=== PATIENT | male | born 1955 | race Caucasian/White ===

== ENCOUNTER → 2017-04-22 | Outpatient (CLI) | payer OTHER ==
[2017-04-22 08:51] LABS: Basophils # (A) 0.1 k/uL (0-0.2); Basophils % (A) 1 %; CH 31.1; CHCM 33.7; Eosinophils # (A) 0.2 k/uL (0-0.7); Eosinophils % (A) 4 %; HCT 47.8 % (39.0-53.0); HDW 2.51; HGB 15.7 gm/dL (13.0-17.5); Luc # (Auto) 0.22; Luc % (Auto) 4; Lymphocytes # (A) 1.8 k/uL (1.0-4.8); Lymphocytes % (A) 34 %; MCH 30.4 pg (25.0-35.0); MCHC 32.7 g/dL (31.0-37.0); MCV 92.8 fL (80.0-100.0); Mean Platelet Volume 6.5; Monocytes # (A) 0.4 k/uL (0-1.0); Monocytes % (A) 7 %; Neutrophils # (A) 2.7 k/uL (1.3-7.7); Neutrophils % (A) 50 %; RBC 5.16 m/uL (4.30-5.90); RDW 13.6 % (11.5-15.5); WBC 5.4 k/uL (3.8-10.6); WBC (Perox) 5.71
[2017-04-22 11:27] LABS: ALT 43 U/L (21-72); AST 24 U/L (17-59); Alkaline Phosphatase 70 U/L (38-126); Anion Gap 8 mmol/L; Blood Urea Nitrogen 21 mg/dL (9-20); Calcium 9.1 mg/dL (8.4-10.2); Carbon Dioxide 27 mmol/L (22-30); Chloride 108 mmol/L (98-107); Cholesterol 215 mg/dL (<200); Creatine Kinase 211 U/L (55-170); Glucose 89 mg/dL (74-99); HDL Cholesterol 47 mg/dL (40-60); Non-African American GFR(MDRD) >60 (>60 ml/min/1.73 sqM); Potassium 4.7 mmol/L (3.5-5.1); Sodium 143 mmol/L (137-145); Total Bilirubin 0.8 mg/dL (0.2-1.3); Total Protein 6.2 g/dL (6.3-8.2); Triglycerides 90 mg/dL (<150)
[2017-04-22 12:15] LABS: Vitamin B12 329 pg/mL (239-931)
== END | disposition home or self-care (01) ==
LOC: LABWHC1 08:00
PROVIDERS: ATTEND Family Medicine
DX: E78.5 Hyperlipidemia, unspecified (principal); K52.831 Collagenous colitis; G25.81 Restless legs syndrome; N52.9 Male erectile dysfunction, unspecified
CPT/HCPCS: 36415; 80053; 80061; 82550; 82607; 83735; 84403; 84439; 84443; 84550; 85025

== ENCOUNTER → 2019-06-06 | Outpatient (CLI) | payer OTHER ==
--- NOTE | 2019-06-06 18:47 | MR ---
EXAMINATION TYPE: MR knee LT wo con DATE OF EXAM: 06/06/2019 COMPARISON: None HISTORY: Left knee pain TECHNIQUE: Multiplanar, multisequence imaging of the left knee is performed without IV contrast. FINDINGS: MEDIAL MENISCUS: There is linear increased signal in the posterior horn of the medial meniscus which extends to the articular surface and extending into the root compatible with tear. The meniscus poste rior horn is attenuated extending into the body. LATERAL MENISCUS: Linear increased signal within the posterior horn of the lateral meniscus extends t o the articular surface consistent with tear. CRUCIATE LIGAMENTS: Posterior cruciate ligament may be somewhat thickened, there is some increased si gnal within the distribution, the fibers of the anterior cruciate ligament are less well-defined and show associated fluid signal which may be due to myxoid degeneration. No mona tear, there may be int rasubstance partial tear. COLLATERAL LIGAMENTS: The medial collateral ligament and lateral collateral ligament complex are inta ct and unremarkable. EXTENSOR MECHANISM: Visualized quadriceps and patellar tendons are intact. EFFUSION: Suprapatellar joint effusion is present. 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 TRICOMPARTMENT SPACES: Joint space loss is present in the medial and lateral compartment. CARTILAGE: Grade IV chondromalacia present in the medial compartment, there is remodeling of the medi al femoral condyle and lateral femoral condyle, grade 3 to grade IV chondromalacia present in the lat eral compartment BONE MARROW SIGNAL: Abnormal marrow signal present in the intercondylar region of the posterior proxi mal tibia, geode formation present in the proximal tibia, reactive marrow signal change present in th e subchondral medial femoral condyle and there may be an intraosseous ganglion at the origin of the a nterior cruciate ligament OTHER: Subcutaneous edema changes are present. Popliteal vein is not well seen at the level of the p osterior knee joint line. Fluid signal extends peripheral to the inferior margin of Hu's cyst. IMPRESSION: Osteoarthritis. Tears of the posterior horns of the medial and lateral meniscus as described. Poplite al vein not well seen at the level posterior to the knee joint. There is apparent mass effect present posterior to the distal femur possibly contributed by the semimembranosus gastrocnemius cyst. Subcut aneous edema. Fluid in the soft tissues could represent rupture of the Hu cyst.
== END | disposition home or self-care (01) ==
LOC: RADMRIMAIN 17:05
PROVIDERS: ATTEND Family Medicine
DX: M17.12 Unilateral primary osteoarthritis, left knee (principal); S83.282A Other tear of lateral meniscus, current injury, left knee, initial encounter; S83.242A Other tear of medial meniscus, current injury, left knee, initial encounter

== ENCOUNTER 2019-06-17 15:03 | Observation (INO) | payer OTHER ==
[2019-06-17 16:53] LABS: Basophils % (A) 0 %; Eosinophils % (A) 0 %; HCT 44.8 % (39.0-53.0); HGB 14.9 gm/dL (13.0-17.5); Lymphocytes # (A) 1.8 k/uL (1.0-4.8); Lymphocytes % (A) 17 %; MCH 29.9 pg (25.0-35.0); MCHC 33.2 g/dL (31.0-37.0); MCV 90.1 fL (80.0-100.0); Mean Platelet Volume 6.2; Monocytes # (A) 0.6 k/uL (0-1.0); Monocytes % (A) 6 %; Neutrophils # (A) 7.4 k/uL (1.3-7.7); Neutrophils % (A) 74 %; Platelet Count 281 k/uL (150-450); RBC 4.98 m/uL (4.30-5.90); RDW 13.7 % (11.5-15.5); WBC 10.1 k/uL (3.8-10.6)
--- NOTE | 2019-06-17 16:53 | ED ---
General Adult HPI - General Chief complaint: Neuro Symptoms/Deficit Stated complaint: Facial Numbness Time Seen by Provider: 06/17/19 15:47 Source: patient Mode of arrival: ambulatory Limitations: no limitations - History of Present Illness Initial comments: 63 yoM presenting with right-sided facial droop that began . 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 He was placed on valacyclovir and prednisone. Since then he's been having worsening symptoms that lead to difficulty swallowing. He states he attempted to contact Dr. Davey's office prior to arrival to the ED but was unab le to get in. He denies any headaches or other focal weaknesses. Denies history of stroke. - Related Data Home Medications Medication Instructions Recorded Confirmed Gabapentin [Neurontin] 600 mg PO HS 06/17/19 06/17/19 Mesalamine [Lialda] 1.2 gm PO DAILY 06/17/19 06/17/19 Pravastatin Sodium [Pravachol] 40 mg PO DAILY 06/17/19 06/17/19 predniSONE See Taper PO DAILY 06/17/19 06/17/19 rOPINIRole HCL 1 mg PO BID@1700,2100 06/17/19 06/17/19 valACYclovir HCL [Valtrex] 1,000 mg PO Q12HR 06/17/19 06/17/19 Allergies Allergy/AdvReac Type Severity Reaction Status Date / Time No Known Allergies Allergy Verified 06/17/19 17:00 Review of Systems ROS Statement: Those systems with pertinent positive or pertinent negative responses have been documented in the HPI. Review of Systems Constitutional: Denies fever, chills Eyes: Denies change in vision, Denies pain Ears, nose, mouth, throat: Denies headaches, Denies sore throat Cardiovascular: Denies chest pain. Denies palpitations Respiratory: Denies shortness of breath, Denies cough Gastrointestinal: Denies abdominal pain. Denies nausea, vomiting, diarrhea. Genitourinary: Denies hematuria, Denies infections Musculoskeletal: Denies pain, Denies swelling Integumentary: Denies rash Neurological: Denies headache. Positive right sided facial droop Psychiatric: Denies anxiety, Denies depression Hematologic/Lymphatic: Denies easy bleeding or bruising ROS Other: All systems not noted in ROS Statement are negative. Past Medical History Past Medical History: No Reported History, Hyperlipidemia Additional Past Medical History / Comment(s): colitis History of Any Multi-Drug Resistant Organisms: None Reported Past Surgical History: Orthopedic Surgery Additional Past Surgical History / Comment(s): ARTHROSCOPY KNEE, COLONOSCOPY Past Anesthesia/Blood Transfusion Reactions: No Reported Reaction Past Psychological History: No Psychological Hx Reported Smoking Status: Never smoker Past Alcohol Use History: Occasional Past Drug Use History: None Reported - Past Family History Mother Family Medical History: No Reported History General Exam - General Exam Comments Initial Comments: General: Awake, alert, No acute Distress HENT: Normocephalic. Atraumatic Eyes: PERRL. EOMI. No scleral icterus. No injected conjunctiva Neck: Full ROM Chest/Lungs: Clear to auscultation bilaterally. No wheezing, rhonchi, or rales Cardiac: Regular rate, rhythm. No murmurs or rubs Abdomen/GI: Soft, nontender, nondistended. No rebound, guarding, or rigidity. Musculoskeletal: Full ROM Skin: Warm, dry, intact Neurologic: A/Ox3. Right sided facial droop involving forehead. Sensation intact. No pronator drift bilaterally. No extremity weakness. Finger to nose intact bilaterally. Limitations: no limitations Course Vital Signs 06/17/19 06/17/19 06/17/19 15:13 16:45 17:30 Temperature 98.1 F Pulse Rate 73 56 L 55 L Respiratory 18 18 18 Rate Blood Pressure 141/87 141/90 146/90 O2 Sat by Pulse 95 94 L 95 Oximetry Medical Decision Making - Medical Decision Making 63-year-old male presenting with right-sided facial droop. Initial exam the patient is awake, alert, no acute distress. VSS. NIHSS 3 for facial droop. I spoke with Dr. Davey, who was concerned that this could be a stroke secondary to his difficulty swallowing. Patient CT head was negative for acute process. He'll be admitted and evaluated by neurology, as well as have an MRI in the morning. Speech therapy also consulted. Patient is stable for transfer to the floor. - Lab Data Result diagrams: 06/17/19 16:42 06/17/19 16:42 Lab Results 06/17/19 06/17/19 Range/Units 16:42 16:42 WBC 10.1 (3.8-10.6) k/uL RBC 4.98 (4.30-5.90) m/uL Hgb 14.9 (13.0-17.5) gm/dL Hct 44.8 (39.0-53.0) % MCV 90.1 (80.0-100.0) fL MCH 29.9 (25.0-35.0) pg MCHC 33.2 (31.0-37.0) g/dL RDW 13.7 (11.5-15.5) % Plt Count 281 (150-450) k/uL Neutrophils % 74 % Lymphocytes % 17 % Monocytes % 6 % Eosinophils % 0 % Basophils % 0 % Neutrophils # 7.4 (1.3-7.7) k/uL Lymphocytes # 1.8 (1.0-4.8) k/uL Monocytes # 0.6 (0-1.0) k/uL Eosinophils # 0.0 (0-0.7) k/uL Basophils # 0.0 (0-0.2) k/uL Sodium 142 (137-145) mmol/L Potassium 4.3 (3.5-5.1) mmol/L Chloride 109 H (98-107) mmol/L Carbon Dioxide 24 (22-30) mmol/L Anion Gap 9 mmol/L BUN 24 H (9-20) mg/dL Creatinine 0.81 (0.66-1.25) mg/dL Est GFR (CKD-EPI)AfAm >90 (>60 ml/min/1.73 sqM) Est GFR (CKD-EPI)NonAf >90 (>60 ml/min/1.73 sqM) Glucose 110 H (74-99) mg/dL Calcium 9.4 (8.4-10.2) mg/dL Disposition Clinical Impression: Sher's palsy Disposition: ADMITTED IP TO THIS [facility] Is patient prescribed a controlled substance at d/c from ED?: No Decision to Admit Reason: Admit from EC Decision Date: 06/17/19 Decision Time: 17:35
[2019-06-17 17:01] LABS: African American GFR (CKD) >90 (>60 ml/min/1.73 sqM); Anion Gap 9 mmol/L; Blood Urea Nitrogen 24 mg/dL (9-20); Calcium 9.4 mg/dL (8.4-10.2); Carbon Dioxide 24 mmol/L (22-30); Chloride 109 mmol/L (98-107); Glucose 110 mg/dL (74-99); Non-African American GFR(CKD) >90 (>60 ml/min/1.73 sqM); Potassium 4.3 mmol/L (3.5-5.1); Sodium 142 mmol/L (137-145)
--- NOTE | 2019-06-17 17:04 | CT ---
EXAMINATION TYPE: CT brain wo con DATE OF EXAM: 06/17/2019 COMPARISON: None HISTORY: Right sided facial numbness. CT DLP: 1102.4 mGycm Automated exposure control for dose reduction was used. FINDINGS: There is mild cerebral cortical atrophy. There is no mass effect nor midline shift. There is no sign of intracranial hemorrhage. The calvarium is intact. Skull base is intact. IMPRESSION: ATROPHY APPROPRIATE FOR AGE. OTHERWISE NEGATIVE EXAM.
[2019-06-17] MEDS ORDERED: IBUPROFEN 400 MG TAB PO PRN (17:35)
[2019-06-17] MEDS ORDERED: ACETAMINOPHEN TAB 325 MG TAB PO PRN (17:35)
[2019-06-17] MEDS ORDERED: NALOXONE 0.4 MG/ML 1 ML VIAL IV PRN (17:35)
--- NOTE | 2019-06-17 20:19 | P.CNNES ---
History of Present Illness Consult date: 06/17/19 Requesting physician: Michelle Ramirez Reason for Consult: Right facial droop Chief complaint: Right face drooping since last History of Present Illness: This is a 63 RH male who was brushing his teeth on the evening of 06/13/19 when he suddenly noticed water was drooling out of the right corner of his mouth. He looked at himself in the mirror and saw that the right side of his face was drooping. Along with the facial droop, he also notices numbness and tingling on the ipsilateral face, a change taste, trouble with mastication and swallowing, difficulty closing his right eye and dry eye OD. He has been using Visine. He denies sensitivity to sound (though he wears hearing aids AU) or periauricular pain. He did present to UC and was started on prednisone and valacylovir within 24 hours of onset of symptoms. He denies any head/neck trauma, URI sx or vaccine. Denies h/o HTN or DM. Does state a statin for HL. Otherwise, pretty physically healthy. No sick contacts or exposure to toxins or industrial agents. His symptoms did not improve significantly since started the 2 meds. He called his PCP who advised him to come to the hospital to get admitted for MRI Brain to r/o CVA. Review of Systems 14-point ROS performed and as per HPI. Neurologically, patient denies decreased level or loss of consciousness, headache, seizure, diplopia, amaurosis, changes in hearing, vertigo, hearing changes, tinnitus, aphasia, other focal numbness/weakness not mentioned above, tremors, bowel/bladder incontinence or ataxia. Past Medical History Past Medical History: No Reported History, Hyperlipidemia Additional Past Medical History / Comment(s): colitis History of Any Multi-Drug Resistant Organisms: None Reported Past Surgical History: Orthopedic Surgery Additional Past Surgical History / Comment(s): ARTHROSCOPY KNEE, COLONOSCOPY Past Anesthesia/Blood Transfusion Reactions: No Reported Reaction Past Psychological History: No Psychological Hx Reported Smoking Status: Never smoker Past Alcohol Use History: Occasional Past Drug Use History: None Reported - Past Family History Mother Family Medical History: No Reported History Medications and Allergies Home Medications Medication Instructions Recorded Confirmed Type Gabapentin [Neurontin] 600 mg PO HS 06/17/19 06/17/19 History Mesalamine [Lialda] 1.2 gm PO DAILY 06/17/19 06/17/19 History Pravastatin Sodium [Pravachol] 40 mg PO DAILY 06/17/19 06/17/19 History predniSONE See Taper PO DAILY 06/17/19 06/17/19 History rOPINIRole HCL 1 mg PO BID@1700,2100 06/17/19 06/17/19 History valACYclovir HCL [Valtrex] 1,000 mg PO Q12HR 06/17/19 06/17/19 History Allergies Allergy/AdvReac Type Severity Reaction Status Date / Time No Known Allergies Allergy Verified 06/17/19 17:00 Physical Examination - Vital Signs Vital Signs: Vital Signs Temp Pulse Resp BP Pulse Ox 06/17/19 19:00 53 L 18 138/96 93 L 06/17/19 17:30 55 L 18 146/90 95 06/17/19 16:45 56 L 18 141/90 94 L 06/17/19 15:13 98.1 F 73 18 141/87 95 Intake and Output 06/17/19 06/17/19 06/17/19 06:59 14:59 22:59 Other: Weight 102.058 kg Gen NAD Pleasant and cooperative HEENT NCAT Sclera without icterus O/P clear Neck Supple No carotid bruit Cor RRR no m/r/g Lungs CTAB Abd Soft NTND +BS Ext Warm to touch No edema Neuro MS A+Ox4 Normal fluency Able to follow all commands CN PERRL VFF no APD EOMI no nystagmus or ROSALIA Right LMN FD with decreased eyebrow raise on the right, weakness in the right orbicularis oculi and decreased contraction of the right platysma Masseter's symmetric Hearing intact to bilateral finger rubbing with hearing aids on AU Speech mildly dysarthric but easily understandable Equal elevation of palate Tongue midline with symmetric strength Sym shrug and SCM bilaterally Motor Normal bulk/tone No pronator or tremors Strength 5/5 sym throughout Sens Intact to LT x4 No neglect or extinction Coord No dysmetria on FTN bilaterally DTRs 2+/4 sym throughout Toes downgoing bilaterally No clonus at achilles Gait Deferred NIHSS 4.210.1=3 Results - Laboratory Findings CBC and BMP: 06/17/19 16:42 06/17/19 16:42 Abnormal Lab Findings: Abnormal Labs 06/17/19 16:42 Chloride 109 H BUN 24 H Glucose 110 H - Diagnostic Findings Additional findings: CT Head wo cont 06/17/19. Mild cerebral atrophy. No ICH. Nil acute. I have reviewed all neuroimages myself. Assessment and Plan Assessment: Right lower motor neuron facial droop. Clinical presentation consistent with Sher's palsy. Rare SLASHER SAWYER exception would be small lacunar pontine ischemic infarct impacting the CNVII after it's exited the facial nucleus. But, his constellation of symptoms all point towards Sher's palsy, etiology unclear. Plan: -MRI Brain already ordered by ER -Continue prednisone and valacyclovir -Many cases of Sher's palsy are idiopathic. HSV has been implicated. Otherwise, the other most common cause is DM. Will send hga1c, TSH, B12, RPR, NIKO, ESR, CRP, SPEP as part of his PN labs -Most serious complication is corneal abrasion/blindness -Will see if the hospital has eye patches. If not, would tape his eye shut and use eye gel OD to prevent corneal abrasion. Get eye patch until he is able to close his right eye and have normal tear production, though in certain cases synkinesis may occur as a long-term complication -SP for swallowing evaluation -DVT prophylaxis -d/w patient in detail. All questions answered. Thank you for this consultation. Please call with ?. Time with Patient: Greater than 30 (Time spent in direct patient care, greater than 50% of which was spent in [id number] counseling and coordination of care: 70 minutes)
[2019-06-17 20:49] LABS: C Reactive Protein <5.0 mg/L (<10.0)
[2019-06-17] MEDS ORDERED: GABAPENTIN 300 MG CAP PO SCH (21:00)
[2019-06-17] MEDS: valACYclovir HCL 1,000 MG TABLET PO SCH (22:44)
[2019-06-18 01:34] VITALS: RESP 16
[2019-06-18 03:26] LABS: Protein, Total 5.9 g/dL (6.2-8.2)
[2019-06-18] MEDS ORDERED: BALSALAZIDE DISODIUM 750 MG CAPSULE PO SCH (07:30)
[2019-06-18 08:06] LABS: African American GFR (CKD) >90 (>60 ml/min/1.73 sqM); Anion Gap 8 mmol/L; Blood Urea Nitrogen 23 mg/dL (9-20); Carbon Dioxide 27 mmol/L (22-30); Chloride 106 mmol/L (98-107); Glucose 87 mg/dL (74-99); Non-African American GFR(CKD) >90 (>60 ml/min/1.73 sqM); Potassium 4.1 mmol/L (3.5-5.1); Sodium 141 mmol/L (137-145)
[2019-06-18 08:26] LABS: Basophils % (A) 0 %; Eosinophils # (A) 0.1 k/uL (0-0.7); Eosinophils % (A) 1 %; HCT 43.7 % (39.0-53.0); HGB 13.9 gm/dL (13.0-17.5); Lymphocytes # (A) 2.7 k/uL (1.0-4.8); Lymphocytes % (A) 34 %; MCH 28.8 pg (25.0-35.0); MCHC 31.9 g/dL (31.0-37.0); MCV 90.5 fL (80.0-100.0); Mean Platelet Volume 6.4; Monocytes # (A) 0.5 k/uL (0-1.0); Monocytes % (A) 6 %; Neutrophils # (A) 4.5 k/uL (1.3-7.7); Neutrophils % (A) 56 %; Platelet Count 275 k/uL (150-450); RBC 4.83 m/uL (4.30-5.90); RDW 13.5 % (11.5-15.5)
[2019-06-18] MEDS ORDERED: predniSONE 20 MG TAB PO SCH (09:00)
[2019-06-18] MEDS ORDERED: PRAVASTATIN SODIUM 40 MG TAB PO SCH (09:00)
--- NOTE | 2019-06-18 09:55 | MR ---
EXAMINATION TYPE: MR brain wo con DATE OF EXAM: 06/18/2019 COMPARISON: CT brain 06/17/2019 HISTORY: Rule out stroke TECHNIQUE: T1-weighted sagittal, T2, FLAIR, and diffusion axial, and T2 coronal coronal views of the brain are submitted. FINDINGS: There is no evidence of acute ischemia. The ventricles, basal cisterns, and sulci overlying the conv exities are consistent with the patient's age and mild degenerative change. There is no mass effect. Craniocervical junction maintained. Sella turcica has a normal appearance. No cerebellopontine angle mass. Changes of chronic sinusitis are noted and there is a nasal septal de viation. Signal noted in the periventricular white matter is nonspecific but most typical remote micr ovascular ischemia. IMPRESSION: 1. No acute intracranial process. 2. Degenerative and nonspecific white matter changes most typical remote microvascular ischemia.
[2019-06-18] MEDS: valACYclovir HCL 1,000 MG TABLET PO SCH (10:38)
[2019-06-18 10:57] VITALS: TEMP 97.8
--- NOTE | 2019-06-18 11:00 | P.PN ---
Subjective Progress Note Date: 06/18/19 Principal diagnosis: Right LMN FD Face still numb and droopy. Still has difficulty with swallowing. SP evaluating patient. Used gauze to tape right eye shut last noc. Hospital does not have eye gel per patient. No new neuro c/o. Objective - Vital Signs Vital signs: Vital Signs Temp 97.7 F 06/18/19 05:01 Pulse 54 L 06/18/19 05:01 Resp 16 06/18/19 05:01 BP 148/83 06/18/19 05:01 Pulse Ox 94 L 06/18/19 05:01 Intake & Output 06/17/19 06/18/19 06/18/19 18:59 06:59 18:59 Weight 102.058 kg 99.1 kg Other: # Voids 1 - Exam Gen NAD Pleasant and cooperative MS A+Ox4 Normal fluency Able to follow all commands CN PERRL VFF no APD EOMI no nystagmus or ROSALIA Right LMN FD with decreased eyebrow raise on the right, weakness in the right orbicularis oculi and decreased contraction of the right platysma Masseter's symmetric Hearing intact to delvis ateral finger rubbing with hearing aids on AU Speech mildly dysarthric but easily understandable Equal elevation of palate Tongue midline with symmetric strength Sym shrug and SCM bilaterally Motor Normal bulk/tone No pronator or tremors Strength 5/5 sym throughout Sens Intact to LT x4 No neglect or extinction Coord No dysmetria on FTN bilaterally DTRs 2+/4 sym throughout Toes downgoing bilaterally No clonus at achilles Gait Deferred NIHSS 4.210.1=3 - Labs CBC & Chem 7: 06/18/19 07:12 06/18/19 07:12 Labs: Abnormal Lab Results - Last 24 Hours (Table) 06/17/19 06/17/19 06/17/19 Range/Units 16:42 16:42 16:42 Chloride 109 H (98-107) mmol/L BUN 24 H (9-20) mg/dL Glucose 110 H (74-99) mg/dL Total Protein (PEP) 5.9 L (6.2-8.2) g/dL TSH 0.399 L (0.465-4.680) mIU/L 06/18/19 Range/Units 07:12 Chloride (98-107) mmol/L BUN 23 H (9-20) mg/dL Glucose (74-99) mg/dL Total Protein (PEP) (6.2-8.2) g/dL TSH (0.465-4.680) mIU/L - Imaging and Cardiology MRI - head: image reviewed (Negative DWI. Scattered T2/FLAIR signal hyperintensities consistent with chronic small vessel ischemia. No ICH. Nil acute.) Assessment and Plan Assessment: Right lower motor neuron facial droop. Clinical presentation consistent with Sher's palsy. Plan: -MRI Brain reviewed with patient and -Continue prednisone and valacyclovir -Many cases of Sher's palsy are idiopathic. HSV has been implicated. Otherwise, the other most common cause is DM. Will send hga1c, TSH, B12, RPR, NIKO, ESR, CRP, SPEP as part of his PN labs. TSH did come back slightly low. Defer to primary team for any further medical work-up. Can follow up with PCP to go over all lab results. -Most serious complication is corneal abrasion/blindness. Eye patch and gel lubricant to keep eye moist and protected at all times until he can close his right eye naturally -SP eval -DVT prophylaxis -d/w patient/ in detail. All questions answered. -Stable for discharge from acute neuro standpoint. No further inpatient neuro recs at this time. Will revisit prn. Please call with new ?. Thank you again for this consultation. Time with Patient: Less than 30 (Time spent in direct patient care, greater than 50% of which was spent in [id number] counseling and coordination of care: 25 minutes)
[2019-06-18 13:16] LABS: Albumin 3.99 g/dL (3.80-4.90); Gamma Globulin 0.47 g/dL (0.70-1.50)
--- NOTE | 2019-06-18 13:57 | P.HPIM ---
History of Present Illness H&P Date: 06/18/19 Chief Complaint: Difficulty of swallowing right-sided facial droop unable to close right eye This would be both an H&P and discharge summary This 63-year-old pleasant gentleman well known to my practice, has underlying history of borderline diabetes distress. 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 Patient comes in to emergency room secondary to difficulty on swallowinghe cannot propel the food down and was pocketing the food on the right cheek, this happened while the patient was brushing his teeth . 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, denies any foreign body trauma to the right eye and was seen in the ER In the emergency room CAT scan of the brain on shows degenerative nonspecific white matter changes no acute intracranial abnormality, MRI of the brain was requested by neurology at the emergency room, for which was performed today, there is chronic sinusitis changes, remote microvascular ischemia, no evidence of acute ischemia was seen by neurology, and RPR NIKO sed rate CRP SPEP ordered, and was cleared for discharge today, speech has been seen by the patient, for swallow eval and the car recommended the chopped soft diet Review of Systems Constitutional: Reports as per HPI, Denies anorexia, Denies chills, Denies chronic headaches, Denies chronic pain, Denies daytime sleepiness, Denies fatigue, Denies fever, Denies lethargy, Denies malaise, Denies night sweats, Denies poor appetite, Denies sweats, Denies weakness, Denies weight gain, Denies weight loss Ears, nose, mouth and throat: Reports as per HPI Cardiovascular: Reports as per HPI Respiratory: Reports as per HPI Genitourinary: Reports as per HPI, Denies decreased libido, Denies difficulties fathering child, Denies discharge, Denies dysuria, Denies erectile dysfunction, Denies flank pain, Denies genital pain, Denies genital sores, Denies hematuria, Denies impotence, Denies incontinence, Denies kidney stones, Denies nocturia, Denies polyuria, Denies testicular lump, Denies testicular pain, Denies urinary frequency, Denies urinary hesitancy, Denies urinary retention Musculoskeletal: Reports as per HPI, Denies arm numbness/tingling, Denies atrophy, Denies fractures, Denies frequent falls, Denies gait dysfunction, Denies hot joints, Denies leg numbness/tingling, Denies limitation of motion, Denies loss of height, Denies low back pain, Denies morning stiffness, Denies muscle cramps, Denies muscle weakness, Denies myalgias, Denies neck pain, Denies neck stiffness, Denies prior amputations, Denies redness of joints, Denies shooting arm pain, Denies shooting leg pain Integumentary: Reports as per HPI Neurological: Reports as per HPI, Reports numbness (face righy), Reports paresthesias (face right) Psychiatric: Reports as per HPI Endocrine: Reports as per HPI Hematologic/Lymphatic: Reports as per HPI Allergic/Immunologic: Reports as per HPI Past Medical History Past Medical History: No Reported History, Hyperlipidemia Additional Past Medical History / Comment(s): colitis and restless leg syndrome History of Any Multi-Drug Resistant Organisms: None Reported Past Surgical History: Orthopedic Surgery Additional Past Surgical History / Comment(s): ARTHROSCOPY KNEE, COLONOSCOPY Past Anesthesia/Blood Transfusion Reactions: No Reported Reaction Past Psychological History: No Psychological Hx Reported Smoking Status: Never smoker Past Alcohol Use History: Occasional Past Drug Use History: None Reported - Past Family History Mother Family Medical History: Diabetes Mellitus Father Family Medical History: Unable to Obtain Brother(s) Family Medical History: No Reported History Sister(s) Family Medical History: No Reported History Daughter(s) Family Medical History: No Reported History Son(s) Family Medical History: No Reported History Medications and Allergies Home Medications Medication Instructions Recorded Confirmed Type Gabapentin [Neurontin] 600 mg PO HS 06/17/19 06/17/19 History Mesalamine [Lialda] 1.2 gm PO DAILY 06/17/19 06/17/19 History Pravastatin Sodium [Pravachol] 40 mg PO DAILY 06/17/19 06/17/19 History predniSONE See Taper PO DAILY 06/17/19 06/17/19 History rOPINIRole HCL 1 mg PO BID@1700,2100 06/17/19 06/17/19 History valACYclovir HCL [Valtrex] 1,000 mg PO Q12HR 06/17/19 06/17/19 History Allergies Allergy/AdvReac Type Severity Reaction Status Date / Time No Known Allergies Allergy Verified 06/17/19 17:00 Physical Exam Vitals: Vital Signs Temp Pulse Pulse Resp BP BP Pulse Ox 06/18/19 08:00 97.8 F 53 L 133/78 95 06/18/19 05:01 97.7 F 54 L 16 148/83 94 L 06/18/19 00:00 97.7 F 59 L 16 149/86 96 06/17/19 22:00 98.1 F 55 L 16 149/83 95 06/17/19 20:30 97.7 F 58 L 18 103/80 96 06/17/19 19:00 53 L 18 138/96 93 L 06/17/19 17:30 55 L 18 146/90 95 06/17/19 16:45 56 L 18 141/90 94 L 06/17/19 15:13 98.1 F 73 18 141/87 95 Intake and Output 06/17/19 06/18/19 06/18/19 22:59 06:59 14:59 Other: # Voids 1 Weight 102.058 kg 99.1 kg - Constitutional General appearance: cooperative, no acute distress - EENT Right facial droop, with shallow nasolabial crease, unable to close the eyelid right side, lip pursing is abnormal, hip blowing abnormal, tongue is midline Eyes: anicteric sclerae, EOMI, PERRLA, dentition normal, normal appearance ENT: NA/AT, normal oropharynx Results CBC & Chem 7: 06/18/19 07:12 06/18/19 07:12 Labs: Abnormal Lab Results - Last 24 Hours (Table) 06/17/19 06/17/19 06/17/19 Range/Units 16:42 16:42 16:42 Chloride 109 H (98-107) mmol/L BUN 24 H (9-20) mg/dL Glucose 110 H (74-99) mg/dL Total Protein (PEP) 5.9 L (6.2-8.2) g/dL Yuuoz-0-Vkkdjldgy 0.53 L (0.60-1.00) g/dL Gamma Globulins 0.47 L (0.70-1.50) g/dL TSH 0.399 L (0.465-4.680) mIU/L 06/18/19 Range/Units 07:12 Chloride (98-107) mmol/L BUN 23 H (9-20) mg/dL Glucose (74-99) mg/dL Total Protein (PEP) (6.2-8.2) g/dL Amhry-4-Hxazdrskt (0.60-1.00) g/dL Gamma Globulins (0.70-1.50) g/dL TSH (0.465-4.680) mIU/L Laboratory Results WBC 8.0 k/uL (3.8-10.6) 06/18/19 07:12 RBC 4.83 m/uL (4.30-5.90) 06/18/19 07:12 Hgb 13.9 gm/dL (13.0-17.5) 06/18/19 07:12 Hct 43.7 % (39.0-53.0) 06/18/19 07:12 MCV 90.5 fL (80.0-100.0) 06/18/19 07:12 MCH 28.8 pg (25.0-35.0) 06/18/19 07:12 MCHC 31.9 g/dL (31.0-37.0) 06/18/19 07:12 RDW 13.5 % (11.5-15.5) 06/18/19 07:12 Plt Count 275 k/uL (150-450) 06/18/19 07:12 Neutrophils % 56 % 06/18/19 07:12 Lymphocytes % 34 % 06/18/19 07:12 Monocytes % 6 % 06/18/19 07:12 Eosinophils % 1 % 06/18/19 07:12 Basophils % 0 % 06/18/19 07:12 Neutrophils # 4.5 k/uL (1.3-7.7) 06/18/19 07:12 Lymphocytes # 2.7 k/uL (1.0-4.8) 06/18/19 07:12 Monocytes # 0.5 k/uL (0-1.0) 06/18/19 07:12 Eosinophils # 0.1 k/uL (0-0.7) 06/18/19 07:12 Basophils # 0.0 k/uL (0-0.2) 06/18/19 07:12 ESR 2 mm/hr (0-15) 06/17/19 16:42 Sodium 141 mmol/L (137-145) 06/18/19 07:12 Potassium 4.1 mmol/L (3.5-5.1) 06/18/19 07:12 Chloride 106 mmol/L (98-107) 06/18/19 07:12 Carbon Dioxide 27 mmol/L (22-30) 06/18/19 07:12 Anion Gap 8 mmol/L 06/18/19 07:12 BUN 23 mg/dL (9-20) H 06/18/19 07:12 Creatinine 0.81 mg/dL (0.66-1.25) 06/18/19 07:12 Est GFR (CKD-EPI)AfAm >90 (>60 ml/min/1.73 sqM) 06/18/19 07:12 Est GFR (CKD-EPI)NonAf >90 (>60 ml/min/1.73 sqM) 06/18/19 07:12 Glucose 87 mg/dL (74-99) 06/18/19 07:12 Calcium 9.0 mg/dL (8.4-10.2) 06/18/19 07:12 C-Reactive Protein <5.0 mg/L (<10.0) 06/17/19 16:42 Total Protein (PEP) 5.9 g/dL (6.2-8.2) L 06/17/19 16:42 Albumin (PEP) 3.99 g/dL (3.80-4.90) 06/17/19 16:42 Twisd-7-Hcgexyvxw 0.30 g/dL (0.10-0.40) 06/17/19 16:42 Nthhj-0-Shfzrvahb 0.53 g/dL (0.60-1.00) L 06/17/19 16:42 Beta Globulins 0.60 g/dL (0.60-1.30) 06/17/19 16:42 Gamma Globulins 0.47 g/dL (0.70-1.50) L 06/17/19 16:42 PEP Interpretation SEE NOTE 06/17/19 16:42 Vitamin B12 409.0 pg/mL (200.0-944.0) 06/17/19 16:42 TSH 0.399 mIU/L (0.465-4.680) L 06/17/19 16:42 NIKO Screen NEGATIVE (NEGATIVE) 06/17/19 16:42 Thrombosis Risk Factor Assmnt - Choose All That Apply Each Factor Represents 1 point: Obesity (BMI >25) Each Risk Factor Represents 2 Points: Age 61-74 years Thrombosis Risk Factor Assessment Total Risk Factor Score: 3 Thrombosis Risk Factor Assessment Level: Moderate Risk Assessment and Plan Plan: 1. Sher's palsy right side, with difficulty of eating related to 7th cranial nerve abnormality,, patient just finished a tapering prednisone dose, and oral valacyclovir, which raises the sometimes is implicated for onset of Sher's pal sy, patient was cleared by neurology Dr. Israel with an MRI of the brain, serum protein electrophoresis, RPR is currently pending, fasting sugars are 87, patient is to be seen by speech therapy and was cleared by speech with a chopped diet, and a home TENS unit outpatient follow-up with speech, at 2-3 times per week, dedicated treatments for 7 cranial nerve pulses, we would allow the patient to have shortened work schedule to allow for physical therapy program. Patient's required compliance eye gel 2. Prediabetes, with recent A1c that is slightly above normal, performed as an outpatient, on low-carb diet, 3 Restless leg syndrome on maintenance of ropinirole 1 mg twice a day no changes 4 colitis, not Crohn's suspected collagenous on the lialda no changes made 5. Hyperlipidemia, on pravastatin 6. Vitamin B12 deficiency, maintenance vitamin B12 500 g daily Discharge planning, stable for discharge today with outpatient physical therapy, TENS unit to the right face, for Sher's palsy, safety glasses for work, and eye patch. Reduced work schedule to allow for physical therapy. Follow-up with myself in 1 week. Time Discharge Medication List Gabapentin [Neurontin] 600 mg PO HS 06/17/19 [History] Mesalamine [Lialda] 1.2 gm PO DAILY 06/17/19 [History] Pravastatin Sodium [Pravachol] 40 mg PO DAILY 06/17/19 [History] predniSONE See Taper PO DAILY 06/17/19 [History] rOPINIRole HCL 1 mg PO BID@1700,2100 06/17/19 [History] valACYclovir HCL [Valtrex] 1,000 mg PO Q12HR 06/17/19 [History]
[2019-06-18 14:31] VITALS: BP 138/84; PULSE 60
== END 2019-06-18 14:24 | disposition home or self-care (01) ==
LOC: EC 15:03 → 3SCARD 18:22
PROVIDERS: ADMIT Family Medicine; ATTEND Family Medicine
DX: G51.0 Bell's palsy (principal); R13.10 Dysphagia, unspecified; E78.5 Hyperlipidemia, unspecified; R73.03 Prediabetes; J32.9 Chronic sinusitis, unspecified; G25.81 Restless legs syndrome; E66.9 Obesity, unspecified; Z68.29 Body mass index [BMI] 29.0-29.9, adult; E53.8 Deficiency of other specified B group vitamins; Z79.899 Other long term (current) drug therapy; Z87.19 Personal history of other diseases of the digestive system; Z83.3 Family history of diabetes mellitus
CPT/HCPCS: 99285; 36415; 92610; 80048 ×2; 85652; 82607; 84443; 85025 ×2; 86140; 84165; 86038; 83036; 70450; 70551; G0378 ×2; J7512

== ENCOUNTER → 2019-11-29 | Outpatient (CLI) | payer OTHER, MEDICARE ==
--- NOTE | 2019-11-29 13:31 | XR ---
EXAMINATION TYPE: XR chest 2V DATE OF EXAM: 11/29/2019 COMPARISON: Chest x-ray January 16, 2010 HISTORY: Presurgical study. TECHNIQUE: Frontal and lateral views of the chest are obtained. FINDINGS: Eventration of both hemidiaphragms redemonstrated. There is chronic parenchymal change with out suspicious focal air space opacity, pleural effusion, or pneumothorax seen. The cardiac silhouet te size is mildly enlarged. Multilevel spurring in the thoracic spine. IMPRESSION: Chronic changes and mild cardiomegaly without acute pulmonary process.
[2019-11-29 19:06] LABS: % Iron Saturation 15.7 (15.00-50.00); Magnesium 2.1 mg/dL (1.5-2.4)
[2019-11-29 23:13] LABS: Hemoglobin A1C 5.6 % (4.0-6.0)
== END | disposition home or self-care (01) ==
LOC: LABWHC1 12:51
PROVIDERS: ATTEND Family Medicine
DX: Z01.818 Encounter for other preprocedural examination (principal); Z01.812 Encounter for preprocedural laboratory examination; I51.7 Cardiomegaly; G25.81 Restless legs syndrome; M23.92 Unspecified internal derangement of left knee; N40.0 Benign prostatic hyperplasia without lower urinary tract symptoms; R73.03 Prediabetes
CPT/HCPCS: 36415; 71046; 82607; 83036; 83540; 83550; 83735

== ENCOUNTER → 2019-11-29 | Outpatient (CLI) | payer OTHER, MEDICARE ==
[2019-11-29 13:15] LABS: Basophils # (A) 0.1 k/uL (0-0.2); Basophils % (A) 1 %; Eosinophils # (A) 0.2 k/uL (0-0.7); Eosinophils % (A) 2 %; HCT 45.5 % (39.0-53.0); HGB 15.2 gm/dL (13.0-17.5); Lymphocytes # (A) 1.9 k/uL (1.0-4.8); Lymphocytes % (A) 19 %; MCH 30.6 pg (25.0-35.0); MCHC 33.3 g/dL (31.0-37.0); MCV 91.8 fL (80.0-100.0); Mean Platelet Volume 6.8; Monocytes # (A) 0.5 k/uL (0-1.0); Monocytes % (A) 5 %; Neutrophils # (A) 7.2 k/uL (1.3-7.7); Neutrophils % (A) 71 %; Platelet Count 258 k/uL (150-450); RBC 4.96 m/uL (4.30-5.90); RDW 13.1 % (11.5-15.5); WBC 10.2 k/uL (3.8-10.6)
[2019-11-29 13:17] LABS: Appearance,Urine Clear (Clear); Bilirubin,Urine Negative (Negative); Blood,Urine Negative (Negative); Color,Urine Yellow; Glucose,Urine (UA) Negative (Negative); Ketones,Urine Negative (Negative); Leukocyte Esterase,Urine Negative (Negative); Nitrite,Urine Negative (Negative); Protein,Urine Trace (Negative); Specific Gravity,Urine 1.023 (1.001-1.035); Urobilinogen,Urine <2.0 mg/dL (<2.0)
[2019-11-29 13:28] LABS: ALT 30 U/L (4-49); AST 28 U/L (17-59); African American GFR (CKD) >90 (>60 ml/min/1.73 sqM); Albumin 4.2 g/dL (3.5-5.0); Alkaline Phosphatase 83 U/L (38-126); Anion Gap 7 mmol/L; Blood Urea Nitrogen 21 mg/dL (9-20); Carbon Dioxide 27 mmol/L (22-30); Chloride 106 mmol/L (98-107); Glucose 92 mg/dL (74-99); Non-African American GFR(CKD) >90 (>60 ml/min/1.73 sqM); Potassium 4.3 mmol/L (3.5-5.1); Sodium 140 mmol/L (137-145); Total Bilirubin 0.7 mg/dL (0.2-1.3); Total Protein 6.6 g/dL (6.3-8.2)
[2019-11-29 13:33] LABS: INR 0.9 (<1.2); Partial Thromboplastin Time 25.3 sec (22.0-30.0); Prothrombin Time 10.1 sec (9.0-12.0)
== END | disposition home or self-care (01) ==
LOC: LABPAT 12:53
PROVIDERS: ATTEND Orthopaedic Surgery
DX: Z01.818 Encounter for other preprocedural examination (principal); M17.12 Unilateral primary osteoarthritis, left knee
CPT/HCPCS: 80053; 81003; 85025; 85610; 85730; 87070

== ENCOUNTER 2019-12-23 13:04 | Day surgery (SDC) | payer MEDICARE, OTHER ==
[2019-12-16 14:09] VITALS: BMI 30.5
[~2019-12-23 13:04] MED LIST: ACETAMINOPHEN TAB 500 MG TAB PO ONE; GABAPENTIN 300 MG CAP PO ONE; MELOXICAM 7.5 MG TAB PO ONE; ROPIVACAINE 246.25 MG, EPINEPHrine 0.5 MG, KETOROLAC 30 MG, cloNIDine HCL/PF 80 MCG, WA... MISCELLANE ONE; TRANEXAMIC ACID 1,000 MG in SODIUM CHLORIDE 0.9% 100 ML IVPB ONE
[2019-12-23] MEDS ORDERED: LACTATED RINGERS 1,000 ML IV ONE (13:55)
[2019-12-23] MEDS ORDERED: ONDANSETRON 4 MG/2 ML VIAL IVP ONE (13:59)
[2019-12-23] MEDS ORDERED: DEXAMETHASONE SOD PHOSPHATE 10 MG/ML 1 ML VIAL IV ONE (13:59)
[2019-12-23] MEDS ORDERED: MIDAZOLAM 2 MG/2 ML VIAL IV ONE (14:05)
[2019-12-23] MEDS ORDERED: MIDAZOLAM 2 MG/2 ML VIAL ONE (15:43)
[2019-12-23] MEDS ORDERED: SODIUM CHLORIDE 0.9% 100 ML BAG ONE (15:43)
[2019-12-23] MEDS ORDERED: fentaNYL (PF) 50 MCG/ML 2 ML AMP ONE (15:43)
[2019-12-23] MEDS ORDERED: PROPOFOL 10 MG/ML 20 ML VIAL IV ONE (15:43)
[2019-12-23] MEDS ORDERED: TRANEXAMIC ACID 1,000 MG/10 ML VIAL ONE (15:43)
[2019-12-23] MEDS ORDERED: ceFAZolin 3,000 MG in SODIUM CHLORIDE 0.9% IRRIGATIO 3,000 ML IRRIGATION ONE (16:16)
[2019-12-23] MEDS ORDERED: ROPIVACAINE 0.2%-NS ON-Q PUMP 1,090 MG, EMPTY PAIN BALL 1 EACH MISCELLANE PRN (16:39)
--- NOTE | 2019-12-23 16:41 | P.ANPRN ---
Procedure Note - Anesthesia - Nerve Block Performed Left Adductor Canal Infusion Time Out Performed: Yes Date of Procedure: 12/23/19 Procedure Start Time: 14:06 Procedure Stop Time: 14:14 Location of Patient: PreOp Indication: Acute Post-Operative Pain, Requested by Surgeon Sedation Type: Sedate with meaningful contact maintained Preparation: Sterile Prep, Sterile Dressing Position: Supine Catheter: Indwelling Needle Types: Pajunk Needle Gauge: 21 Ultrasound used to visualize needle placement: Yes Ultrasound used to observe medication spread: Yes Blood Aspirated: No Pain Paresthesia on Injection Noted: No Resistance on Injection: Normal Image Stored and Saved: Yes Events: Uneventful and Well Tolerated (ropi .5% 20cc plus dexamethasone 4mg)
--- NOTE | 2019-12-23 17:02 | P.OP ---
Date of Procedure: 12/23/19 Preoperative Diagnosis: Severe osteoarthritis left knee Postoperative Diagnosis: Severe osteoarthritis left knee Procedure(s) Performed: Left total knee arthroplasty Implants: Monsalve and Nephew Journey II CR Oxinium cruciate retaining femoral component size 7, left Monsalve [employer] Nephew Journey left nonporous tibial baseplate size 6 Monsalve [employer] Nephew Journey II, XLPE CR articular insert, size 9 mm, Size 5-6 left Monsalve [employer]hew Journey BCS resurfacing oval patellar component, 32 mm All components were cemented using Palacos R bone cement.. The articulation is Oxinium on polyethylene. Anesthesia: spinal Surgeon: Jameson Stevenson Vp Cardiovascular #1: Faustina Joseph Estimated Blood Loss (ml): 50 Pathology: other Condition: stable Disposition: PACU Indications for Procedure: After failure of conservative treatment we discussed the surgical and nonsurgical treatment options at length. Patient wishes to proceed with a total knee arthroplasty. Complications specific to this procedure were discussed at length, including but not limited to infection, bleeding, stiffness, and nerve injury. Patient is aware of all these complications and informed consent was obtained Operative Findings: The operative findings are consistent with severe osteoarthritis of the left knee Description of Procedure: Patient was seen in the preoperative area consent was reviewed and operative site was marked with a skin marker. An adductor canal pain catheter was placed by anesthesia in the preoperative area. Patient was then brought to the operating room and given preoperative antibiotics intravenously. A spinal anesthetic was administered by the anesthesia department. A tourniquet was placed on the upper thigh and the lower extremity was prepped and draped in usual sterile fashion. A gram of transexamic acid was given. A universal timeout was then performed which confirmed the patient's name, surgical site, ALLERGIES, and consent. The lower extremity was then exsanguinated and tourniquet was inflated to 250 mmHg. A standard and anterior midline approach to the knee was performed. The skin and subcutaneous tissue was dissected down to the patellar tendon. A medial parapatellar arthrotomy was then performed. The knee was then extended, the patellar was everted, and the knee was again flexed. Anterior horns of both menisci were excised, and a release was performed to the posterior medial aspect of the knee. On gross visual inspection, there was complete loss of articular cartilage in the medial and patellofemoral joint spaces. There was also significant cartilage damage in the lateral compartment. There were multiple periarticular osteophytes which were then removed with a Ronguer. The femoral canal was then opened with the appropriate drill, and the intramedullary femoral cutting guide was then placed and set for 5 of valgus. The distal femoral cutting block was then pinned in place, and the distal femur was then cut. The cutting block was then removed and the cut was checked for flatness. Next, the sizing guide was then placed and set for 3 external rotation based off of the epicondylar axis and Whitesides line. After the femur was sized, the appropriate 4-in-1 cutting block was then pinned in place. The anterior condyles were cut without notching. The posterior and chamfer cuts were performed while protecting the collateral ligaments. The cutting block was then removed, and the femoral canal was plugged with autologous bone. Attention was then directed to the tibia. The remaining ACL was removed with a Ronguer, and the tibia was then gently subluxed forward with a large bent knee retractor. Any remaining menisci was excised. The posterior lateral corner was cauterized in order to cauterize the lateral geniculate artery. The extra medullary tibial cutting guide was then placed, set for the appropriate rotation, slope, and depth of resection. The proximal tibia cutting guide was then pinned in place. Proximal tibia was then cut and sized. Next trials were then placed with the appropriate-sized insert. The knee was able to fully extend and flex to 130 and was stable throughout all range of motion. The knee was then extended, patella everted. Patella was then measured, and then using an osteotomy guide, the patella was cut at the appropriate level. The patella was then measured and drilled and the patella trial was then placed. The knee was then taken through range of motion with the patella trial and the patella tracked normally. The knee was then extended patella trial was then removed and the patella was everted. Knee was then flexed and lug holes were drilled through the femoral trial and the femoral trial was then removed. The tibial was then exposed, and the tibial broach guide was then pinned in place after it was set for the appropriate rotation to allow for the most coverage without overhang. The tibia was then reamed and broached. The cut surfaces of bone were then irrigated with pulsatile lavage. The posterior structures were injected with the ropivacaine solution. The knee was also irrigated with Irrisept solution. The components were then opened, the cement was mixed, and the components were then cemented in place. The cement was allowed to harden with the knee in full extension. While the cement was hardening, the remaining soft tissues were then injected with a ropivacaine solution, which consisted of 246.25 mg of ropivacaine, 0.5 mg of epinephrine, 30 mg of Toradol, 80 g of clonidine, and 48.45 mL of sterile water, for a total of 100 mL of fluid injected. After the cemented hardened. The tourniquet was released, and hemostasis was obtained. A second gram of transexamic acid was given. The knee was again irrigated. The knee was again taken through range of motion and found to be stable throughout all range of motion of 0-130, and the patella tracked normally. The fascia was then closed with #2 strata fix suture. The subcutaneous tissue was closed with 3-0 Vicryl and 3-0 strata fix. Dermabond glue was used for the skin and placed with the knee in flexion. The patient was placed in a sterile silver dressing. Patient was then transferred to recovery room in stable condition. The medical office receptionist assistant ANGELA De Dios was required due the complexity surgery and the need for a skilled surgical scheduler. She assisted in positioning, draping, retraction, and closure of the wound.
[2019-12-23] MEDS ORDERED: NA PHOS,M-B/NA PHOS,DI-BA 133 ML ENEMA RECTAL PRN (17:34)
[2019-12-23] MEDS ORDERED: HYDROcodone/APAP 5-325MG 1 EACH TAB PO PRN (17:34)
[2019-12-23] MEDS ORDERED: MAGNESIUM HYDROXIDE 2,400 MG/10 ML CUP PO PRN (17:34)
[2019-12-23] MEDS ORDERED: ONDANSETRON 4 MG/2 ML VIAL IVP PRN (17:34)
[2019-12-23] MEDS ORDERED: TEMAZEPAM 15 MG CAP PO PRN (17:34)
[2019-12-23] MEDS ORDERED: HYDROmorphone 1 MG/ML 1 ML SYRINGE IVP PRN (17:34)
[2019-12-23] MEDS ORDERED: NALOXONE 0.4 MG/ML 1 ML VIAL IV PRN (17:34)
[2019-12-23] MEDS ORDERED: BISACODYL 10 MG SUPP RECTAL PRN (17:34)
[2019-12-23] MEDS ORDERED: HYDROmorphone 0.5 MG/0.5 ML SYRINGE IVP PRN ×2 (17:34)
--- NOTE | 2019-12-23 17:57 | XR ---
EXAMINATION TYPE: XR knee limited LT DATE OF EXAM: 12/23/2019 COMPARISON: NONE HISTORY: Postop knee surgery TECHNIQUE: 2 views FINDINGS: There is left knee prosthesis. Components are in anatomic position. IMPRESSION: No complicating process seen.
[2019-12-23] MEDS: ASPIRIN 325 MG TAB PO SCH (19:47)
[2019-12-23] MEDS: LACTATED RINGERS 1,000 ML IV SCH (19:47)
[2019-12-23] MEDS ORDERED: SENNOSIDES-DOCUSATE SODIUM 1 EACH TAB PO SCH (21:00)
[2019-12-23] MEDS ORDERED: GABAPENTIN 300 MG CAP PO SCH (21:00)
[2019-12-24] MEDS: HYDROcodone/APAP 5-325MG 1 EACH TAB PO PRN ×3 (01:59→13:31)
[2019-12-24] MEDS: LACTATED RINGERS 1,000 ML IV SCH (05:29)
[2019-12-24 06:46] LABS: Basophils % (A) 0 %; Eosinophils % (A) 0 %; HCT 43.8 % (39.0-53.0); HGB 14.1 gm/dL (13.0-17.5); Lymphocytes # (A) 1.4 k/uL (1.0-4.8); Lymphocytes % (A) 8 %; MCH 29.2 pg (25.0-35.0); MCHC 32.3 g/dL (31.0-37.0); MCV 90.7 fL (80.0-100.0); Mean Platelet Volume 6.9; Monocytes # (A) 0.8 k/uL (0-1.0); Monocytes % (A) 4 %; Neutrophils # (A) 16.1 k/uL (1.3-7.7); Neutrophils % (A) 87 %; Platelet Count 303 k/uL (150-450); RBC 4.83 m/uL (4.30-5.90); RDW 13.1 % (11.5-15.5); WBC 18.5 k/uL (3.8-10.6)
--- NOTE | 2019-12-24 07:15 | P.PN ---
Progress Note - Text 12/24 646am 64-year-old male status post total knee replacement by Dr. Jameson serra. Patient has an On-Q pump for postop pain control, solution is running at 8 mL an hour with a VAS of 0. Doing very well plan to go home today with On-Q pump.
[2019-12-24 07:27] VITALS: BP 116/65; PULSE 80; RESP 18; TEMP 96.7
[2019-12-24] MEDS: ASPIRIN 325 MG TAB PO SCH (08:02)
[2019-12-24] MEDS ORDERED: PRAVASTATIN SODIUM 40 MG TAB PO SCH (09:00)
[2019-12-24] MEDS ORDERED: MULTIVITAMINS, THERA 1 EACH TAB PO SCH (09:00)
[2019-12-24] MEDS ORDERED: MELOXICAM 7.5 MG TAB PO SCH (09:00)
--- NOTE | 2019-12-24 11:58 | P.DS ---
Providers Expected date of discharge: 12/24/19 Attending physician: Jameson Stevenson Consults: 12/23/19 17:34 Consult Physician Routine Consulting Provider: Chanda Davey Consult Reason/Comments: medical management Do you want consulting provider notified?: Yes Primary care physician: Chanda Davey - Discharge Diagnosis(es) (1) Osteoarthritis of left knee Current Visit: Yes Status: Acute (2) Status post total left knee replacement Current Visit: Yes Status: Acute Hospital Course: This is a 64-year-old male who was last seen with complaint of continued left knee pain. The patient has a known history of degenerative arthritis of the left knee and presents to discuss surgical options. After discussion and consideration the patient elects to proceed with total left knee arthroplasty. The patient is seen preoperatively by his primary care physician and cleared for surgery. The patient is admitted to [facility] for total left knee arthroplasty. The procedures performed without complication or sequelae. He is doing well postoperatively. Vital signs are stable at discharge. Labs are stable at discharge. the patient is ambulating well with walker with minimal assistance. The patient is discharged to home on postop day #1 pending medical clearance. Please see orders and refer to the med rec for accurate list of medications. Plan - Discharge Summary Discharge Rx Participant: No New Discharge Prescriptions: New Aspirin 325 mg PO BID #60 tab Meloxicam [Mobic] 1 - 2 tab PO DAILY PRN #30 tab PRN Reason: Pain HYDROcodone/APAP 7.5-325MG [Madison 7.5-325] 1 - 2 tab PO Q4-6H PRN #50 tab PRN Reason: Pain Sennosides-Docusate Sodium [Senokot-S] 1 tab PO BID #60 tablet No Action Pravastatin Sodium [Pravachol] 40 mg PO DAILY Mesalamine [Lialda] 1.2 gm PO DAILY Gabapentin [Neurontin] 600 mg PO HS Multivitamins, Thera [Multivitamin (formulary)] 1 tab PO DAILY Aspirin [Adult Low Dose Aspirin EC] 81 mg PO DAILY Discharge Medication List Gabapentin [Neurontin] 600 mg PO HS 06/17/19 [History] Mesalamine [Lialda] 1.2 gm PO DAILY 06/17/19 [History] Pravastatin Sodium [Pravachol] 40 mg PO DAILY 06/17/19 [History] Aspirin [Adult Low Dose Aspirin EC] 81 mg PO DAILY 12/16/19 [History] Multivitamins, Thera [Multivitamin (formulary)] 1 tab PO DAILY 12/16/19 [Histor y] Aspirin 325 mg PO BID #60 tab 12/24/19 [Rx] HYDROcodone/APAP 7.5-325MG [Madison 7.5-325] 1 - 2 tab PO Q4-6H PRN #50 tab 12/24/19 [Rx] Meloxicam [Mobic] 1 - 2 tab PO DAILY PRN #30 tab 12/24/19 [Rx] Sennosides-Docusate Sodium [Senokot-S] 1 tab PO BID #60 tablet 12/24/19 [Rx] Follow up Appointment(s)/Referral(s): Chanda Davey MD [Primary Care Provider] - 1 Week Jameson Stevenson DO [Doctor of Osteopathic Medicine] - 2 Weeks Ambulatory/Diagnostic Orders: Continuous Passive Motion (CPM) Machine [DME.AMB1] Time Frame: 3 Weeks, Facility: [facility], Location: Case Management Activity/Diet/Wound Care/Special Instructions: *Patient should begin outpatient Physical Therapy by . Please call and schedule an appointment with your preferred outpatient Physical Therapist. If you cannot find one that takes your insurance, call [facility] at [phone]. This is the agency [facility] uses to set up outpatient needs and they should be able to tell the patient who is in network. Discharge Disposition: HOME SELF-CARE
--- NOTE | 2019-12-24 12:52 | P.CONS ---
History of Present Illness - Reason for Consult Consult date: 12/24/19 - History of Present Illness This is a 64-year-old male patient of Dr. Davey with past medical history of hyperlipidemia, collagenous colitis, restless leg syndrome, obstructive sleep apnea status post surgery, Sher's palsy affecting the right side. Patient has been brought in the hospital under the care of Dr. Stevenson, status post left total knee arthroplasty. Patient is seen on the first postop day. Patient has been afebrile, hemodynamically stable, WBC 18.5, hemoglobin 14.1. The patient has been ambulating in his room without any difficulty. He does have a Q-pump in place. He has not required a walker. He denies any nausea or vomiting, no diarrhea. He has not had a bowel movement. He has been urinating without difficulty. Patient is anticipating discharge home later today. Review of Systems Constitutional: Denies chills, Denies fatigue, Denies fever, Denies lethargy, Denies malaise, Denies poor appetite, Denies weight loss Eyes: denies blurred vision, denies pain Ears: deny: decreased hearing Ears, nose, mouth and throat: Denies headache, Denies nasal congestion, Denies nasal discharge, Denies sore throat, Denies vertigo Cardiovascular: Denies chest pain, Denies decreased exercise tolerance, Denies dyspnea on exertion, Denies lightheadedness, Denies shortness of breath, Denies syncope Respiratory: Reports sleep apnea, Denies cough, Denies cough with sputum, Denies dyspnea, Denies excessive sputum, Denies hemoptysis, Denies home oxygen, Denies respiratory infections, Denies wheezing Gastrointestinal: Denies abdominal pain, Denies diarrhea, Denies loss of appetite, Denies nausea, Denies vomiting Genitourinary: Denies dysuria, Denies urinary frequency, Denies urinary retention Musculoskeletal: Denies frequent falls, Denies gait dysfunction, Denies muscle weakness, Denies myalgias Integumentary: Denies pruritus, Denies rash Neurological: Denies change in mentation, Denies change in speech, Denies numbness, Denies seizures, Denies weakness Psychiatric: Denies anxiety, Denies depression Endocrine: Denies fatigue, Denies weight change Past Medical History Past Medical History: Hyperlipidemia Additional Past Medical History / Comment(s): colitis and restless leg syndrome, had sx for sleep apnea, wears mouthpiece at night History of Any Multi-Drug Resistant Organisms: None Reported Past Surgical History: Orthopedic Surgery Additional Past Surgical History / Comment(s): sx for sleep apnea, ARTHROSCOPY right KNEE, COLONOSCOPY, left total knee arthroplasty 12/23/2019 Past Anesthesia/Blood Transfusion Reactions: No Reported Reaction Past Psychological History: No Psychological Hx Reported Smoking Status: Never smoker Past Alcohol Use History: Occasional Additional Past Alcohol Use History / Comment(s): Patient is a lifelong nonsmoker, no illicit drug use, occasional alcohol use. Patient lives at home with his . Past Drug Use History: None Reported - Past Family History Mother Family Medical History: Diabetes Mellitus Additional Family Medical History / Comment(s): Mother is alive at age 82 with history of diabetes. Father Family Medical History: Unable to Obtain Additional Family Medical History / Comment(s): Father at age 64 from a brain aneurysm. Brother(s) Family Medical History: No Reported History Additional Family Medical History / Comment(s): Patient has 5 brothers with no major medical problems. Sister(s) Family Medical History: No Reported History Additional Family Medical History / Comment(s): Patient has one sister with no major medical problems. Daughter(s) Family Medical History: No Reported History Additional Family Medical History / Comment(s): Patient has one daughter with no major medical problems. Son(s) Family Medical History: No Reported History Additional Family Medical History / Comment(s): Patient has 2 sons with no major medical problems. Medications and Allergies Home Medications Medication Instructions Recorded Confirmed Type Gabapentin [Neurontin] 600 mg PO HS 06/17/19 12/16/19 History Mesalamine [Lialda] 1.2 gm PO DAILY 06/17/19 12/16/19 History Pravastatin Sodium [Pravachol] 40 mg PO DAILY 06/17/19 12/16/19 History Aspirin [Adult Low Dose Aspirin EC] 81 mg PO DAILY 12/16/19 12/16/19 History Multivitamins, Thera [Multivitamin 1 tab PO DAILY 12/16/19 12/16/19 History (formulary)] Aspirin 325 mg PO BID #60 tab 12/24/19 Rx HYDROcodone/APAP 7.5-325MG [[place] 1 - 2 tab PO Q4-6H PRN #50 tab 12/24/19 Rx 7.5-325] Meloxicam [Mobic] 1 - 2 tab PO DAILY PRN #30 tab 12/24/19 Rx Sennosides-Docusate Sodium 1 tab PO BID #60 tablet 12/24/19 Rx [Senokot-S] Allergies Allergy/AdvReac Type Severity Reaction Status Date / Time No Known Allergies Allergy Verified 12/23/19 13:43 Physical Exam Vitals: Vital Signs Temp Pulse Pulse Pulse Resp BP Pulse Ox 12/24/19 07:25 96.7 F L 80 18 116/65 92 L 12/24/19 03:00 16 12/24/19 01:15 98.1 F 83 110/65 92 L 12/23/19 23:55 90 111/70 92 L 12/23/19 23:24 16 12/23/19 20:30 87 119/75 93 L 12/23/19 20:15 85 111/73 93 L 12/23/19 20:00 79 16 126/79 95 12/23/19 19:45 84 146/77 95 12/23/19 19:30 74 133/70 94 L 12/23/19 19:15 75 122/66 94 L 12/23/19 19:00 77 114/71 93 L 12/23/19 18:45 77 110/59 93 L 12/23/19 18:30 97.6 F 68 107/65 93 L 12/23/19 18:16 72 16 111/60 93 L 12/23/19 18:00 75 16 111/58 93 L 12/23/19 17:45 78 16 106/58 93 L 12/23/19 17:30 97.6 F 82 16 110/56 92 L 12/23/19 14:22 62 16 113/70 97 12/23/19 13:40 97.1 F L 64 16 133/78 97 Intake and Output 12/23/19 12/24/19 12/24/19 22:59 06:59 14:59 Intake Total 351 1250 236 Output Total 50 600 Balance 301 650 236 Intake: IV 351 Intake, IV Titration 1250 Amount Lactated Ringers 1,000 ml 1200 @ 100 mls/hr IV .Q10H [facility] Rx#:[id number] ceFAZolin 2 gm In Sodium 50 Chloride 0.9% 50 ml @ 100 mls/hr IVPB Q8HR [facility] Rx# :[id number] Oral 236 Output: Urine 600 Estimated Blood Loss 50 Other: Voiding Method Toilet Weight 99 kg Gen: This is a 64-year-old male. Patient is resting in bed and appears to be comfortable. Patient's is at bedside. HEENT: Head is atraumatic, normocephalic. Pupils equal, round. Sclerae is anicteric. NECK: Supple. No JVD. No lymphadenopathy. No thyromegaly. LUNGS: Clear to auscultation. No wheezes or rhonchi. No intercostal retractions. HEART: Regular rate and rhythm. No murmur. ABDOMEN: Soft. Bowel sounds are present. No masses. No tenderness. EXTREMITIES: No pedal edema. No calf tenderness. Dorsalis pedis +2 bilaterally. Small dressing in place to the left knee. NEUROLOGICAL: Patient is awake, alert and oriented x3. Cranial nerves 2 through 12 are grossly intact. Results CBC & Chem 7: 12/24/19 06:18 Labs: Abnormal Lab Results - Last 24 Hours (Table) 12/24/19 Range/Units 06:18 WBC 18.5 H (3.8-10.6) k/uL Neutrophils # 16.1 H (1.3-7.7) k/uL Assessment and Plan Plan: 1. Osteoarthritis status post left total knee arthroplasty, postop day #1. Continue current pain management, PT, OT, aspirin 325 mg twice daily for DVT prophylaxis. Incentive spirometry to reduce incidence of atelectasis and hospital-acquired pneumonia. 2. Hyperlipidemia. 3. History of colitis, stable. Continue mesalamine 1.2 g daily. 4. Restless leg syndrome. 5. Obstructive sleep apnea status post surgery, continue mouthpiece at night. Discharge plan: home Impression and plan of care have been directed as dictated by the signing physician. Cat Rodrigez nurse practitioner acting as scribe for signing physician.
== END 2019-12-24 13:40 | disposition home or self-care (01) ==
LOC: OR 13:04 → 4SSUR 18:56 → OR 12-24 13:40
PROVIDERS: ATTEND Orthopaedic Surgery
DX: M17.12 Unilateral primary osteoarthritis, left knee (principal); M23.201 Derangement of unspecified lateral meniscus due to old tear or injury, left knee; M23.204 Derangement of unspecified medial meniscus due to old tear or injury, left knee; M71.22 Synovial cyst of popliteal space [Baker], left knee; G51.0 Bell's palsy; E78.5 Hyperlipidemia, unspecified; K52.831 Collagenous colitis; G25.81 Restless legs syndrome; G47.33 Obstructive sleep apnea (adult) (pediatric); K51.90 Ulcerative colitis, unspecified, without complications; H91.90 Unspecified hearing loss, unspecified ear; N52.9 Male erectile dysfunction, unspecified; Z79.82 Long term (current) use of aspirin; Z79.899 Other long term (current) drug therapy; Z90.89 Acquired absence of other organs; Z97.3 Presence of spectacles and contact lenses; Z83.3 Family history of diabetes mellitus; Z82.49 Family history of ischemic heart disease and other diseases of the circulatory system
CPT/HCPCS: 97161; 64448; 76942; 85025; 88300; 73560; 27447; C1713; C1776; J2250; J0171; J1100; J0690 ×3; J2405; J3010; J1885; J2795 ×2; J2704; J0735

== ENCOUNTER → 2020-07-03 | Outpatient (CLI) | payer OTHER, MEDICARE ==
[2020-07-03 07:38] LABS: Basophils # (A) 0.1 k/uL (0-0.2); Basophils % (A) 1 %; Eosinophils # (A) 0.3 k/uL (0-0.7); Eosinophils % (A) 4 %; HCT 46.4 % (39.0-53.0); HGB 14.8 gm/dL (13.0-17.5); Lymphocytes # (A) 2.6 k/uL (1.0-4.8); Lymphocytes % (A) 37 %; MCH 29.5 pg (25.0-35.0); MCHC 31.9 g/dL (31.0-37.0); MCV 92.7 fL (80.0-100.0); Mean Platelet Volume 6.9; Monocytes # (A) 0.4 k/uL (0-1.0); Monocytes % (A) 6 %; Neutrophils # (A) 3.4 k/uL (1.3-7.7); Neutrophils % (A) 48 %; Platelet Count 285 k/uL (150-450); RBC 5.01 m/uL (4.30-5.90); RDW 13.5 % (11.5-15.5); WBC 7.1 k/uL (3.8-10.6)
[2020-07-03 12:02] LABS: % Iron Saturation 35.45 (15.00-50.00); African American GFR (CKD) 103.5 (60.0-200.0); Albumin 4.3 g/dL (3.80-4.90); Albumin/Globulin Ratio 2.69 (1.60-3.17); Anion Gap 8.7 mmol/L (4.00-12.00); BUN/Creat Ratio 24.44 Ratio (12.00-20.00); Carbon Dioxide 24.3 mmol/L (21.6-31.8); Chol/HDL Ratio 3.3; Globulin 1.6 g/dL (1.6-3.3); Non-African American GFR(CKD) 89.3 (60.0-200.0); Potassium 4.1 mmol/L (3.5-5.5); Total Bilirubin 0.8 mg/dL (0.3-1.2); Total Protein 5.9 g/dL (6.2-8.2)
[2020-07-03 15:06] LABS: Hemoglobin A1C 5.7 % (4.0-6.0)
== END | disposition home or self-care (01) ==
LOC: LABWHC1 06:57
PROVIDERS: ATTEND Family Medicine
DX: E78.5 Hyperlipidemia, unspecified (principal); M23.92 Unspecified internal derangement of left knee; R73.03 Prediabetes; G25.81 Restless legs syndrome
CPT/HCPCS: 36415; 80053; 80061; 82607; 83036; 83540; 83550; 83735; 84443; 85025

== ENCOUNTER → 2020-12-07 | Outpatient (CLI) | payer MEDICARE, BC ==
[2020-12-07 07:40] LABS: Basophils # (A) 0.1 k/uL (0-0.2); Basophils % (A) 1 %; Eosinophils # (A) 0.2 k/uL (0-0.7); Eosinophils % (A) 3 %; HCT 47.8 % (39.0-53.0); HGB 15.9 gm/dL (13.0-17.5); Lymphocytes # (A) 2.2 k/uL (1.0-4.8); Lymphocytes % (A) 33 %; MCH 30.6 pg (25.0-35.0); MCHC 33.3 g/dL (31.0-37.0); MCV 91.9 fL (80.0-100.0); Mean Platelet Volume 6.4; Monocytes # (A) 0.5 k/uL (0-1.0); Monocytes % (A) 7 %; Neutrophils # (A) 3.4 k/uL (1.3-7.7); Neutrophils % (A) 52 %; Platelet Count 282 k/uL (150-450); RBC 5.21 m/uL (4.30-5.90); RDW 13.3 % (11.5-15.5); WBC 6.6 k/uL (3.8-10.6)
[2020-12-07 10:56] LABS: African American GFR (CKD) 90.5 (60.0-200.0); Albumin 4.5 g/dL (3.80-4.90); Albumin/Globulin Ratio 2.81 (1.60-3.17); Anion Gap 4.8 mmol/L (4.00-12.00); Calcium 9.4 mg/dL (8.7-10.3); Carbon Dioxide 29.2 mmol/L (21.6-31.8); Chol/HDL Ratio 3.35; Globulin 1.6 g/dL (1.6-3.3); LDL Cholesterol,Calculated 98.2 mg/dL (0.0-131.0); Magnesium 2.1 mg/dL (1.5-2.4); Non-African American GFR(CKD) 78.1 (60.0-200.0); Potassium 4.5 mmol/L (3.5-5.5); Total Bilirubin 0.8 mg/dL (0.2-1.2); Total Protein 6.1 g/dL (6.2-8.2); VLDL Calculation 16.8 mg/dL (5.00-40.00)
[2020-12-07 11:03] LABS: Prostate Specific Antigen 0.9 ng/mL (0.0-4.5)
[2020-12-07 14:45] LABS: Hemoglobin A1C 5.6 % (4.0-6.0)
== END | disposition home or self-care (01) ==
LOC: LABWHC1 07:08
PROVIDERS: ATTEND Family Medicine
DX: Z00.00 Encounter for general adult medical examination without abnormal findings (principal); G25.81 Restless legs syndrome; E78.5 Hyperlipidemia, unspecified; R73.03 Prediabetes; N40.0 Benign prostatic hyperplasia without lower urinary tract symptoms; E53.8 Deficiency of other specified B group vitamins
CPT/HCPCS: 36415; 80053; 80061; 82550; 82607; 83036; 83735; 84153; 84443; 85025

== ENCOUNTER → 2022-01-22 | Outpatient (CLI) | payer MEDICARE ==
[2022-01-22 11:54] LABS: % Iron Saturation 30.01 (15.00-50.00)
[2022-01-22 12:06] LABS: Basophils # (A) 0.08 X 10*3/uL (0.00-0.10); Basophils % (A) 1.2 %; Eosinophils # (A) 0.19 X 10*3/uL (0.04-0.35); Eosinophils % (A) 2.8 %; HCT 47.4 % (39.6-50.0); HGB 15.1 g/dL (13.0-17.0); Immature Grans, Automated 0.4 %; Lymphocytes # (A) 2.04 X 10*3/uL (0.90-5.00); Lymphocytes % (A) 29.9 %; MCH 30.1 pg (27.0-32.0); MCHC 31.9 g/dL (32.0-37.0); MCV 94.4 fL (80.0-97.0); Mean Platelet Volume 9.6 fL (9.5-12.2); Monocytes % (A) 8.8 %; NRBC Per 100 WBC 0 /100 WBCS (0.0-0.0); Neutrophils # (A) 3.88 X 10*3/uL (1.80-7.70); Neutrophils % (A) 56.9 %; Platelet Count 303 X 10*3/uL (140-440); RBC 5.02 X 10*6/uL (4.40-5.60); WBC 6.82 X 10*3/uL (4.50-10.00)
== END | disposition home or self-care (01) ==
LOC: LABWHC1 08:12
PROVIDERS: ATTEND Psychiatry & Neurology Neurology
DX: G25.3 Myoclonus (principal); G25.81 Restless legs syndrome; G25.71 Drug induced akathisia; G60.3 Idiopathic progressive neuropathy
CPT/HCPCS: 36415; 83540; 83550; 84466; 85025

== ENCOUNTER → 2022-05-14 | Outpatient (CLI) | payer BC, MEDICARE ==
[2022-05-14 12:34] LABS: Basophils # (A) 0.08 X 10*3/uL (0.00-0.10); Basophils % (A) 1.2 %; Eosinophils # (A) 0.21 X 10*3/uL (0.04-0.35); Eosinophils % (A) 3.3 %; HCT 46.4 % (39.6-50.0); Immature Grans, Automated 0.5 %; Lymphocytes # (A) 2.18 X 10*3/uL (0.90-5.00); Lymphocytes % (A) 33.9 %; MCH 29.9 pg (27.0-32.0); MCHC 32.3 g/dL (32.0-37.0); MCV 92.6 fL (80.0-97.0); Mean Platelet Volume 10.1 fL (9.5-12.2); Monocytes # (A) 0.64 X 10*3/uL (0.20-1.00); NRBC Per 100 WBC 0 /100 WBCS (0.0-0.0); Neutrophils # (A) 3.29 X 10*3/uL (1.80-7.70); Neutrophils % (A) 51.1 %; Platelet Count 287 X 10*3/uL (140-440); RBC 5.01 X 10*6/uL (4.40-5.60); RDW 13.9 % (11.5-14.5); WBC 6.43 X 10*3/uL (4.50-10.00)
[2022-05-14 13:12] LABS: ALT 28 U/L (10-49); AST 18 U/L (14-35); African American GFR (CKD) 80.1 (60.0-200.0); Albumin 4.5 g/dL (3.8-4.9); Alkaline Phosphatase 83 U/L (41-126); BUN/Creat Ratio 17.27 Ratio (12.00-20.00); Calcium 8.9 mg/dL (8.7-10.3); Carbon Dioxide 18.1 mmol/L (20.0-27.5); Chloride 111 mmol/L (96-109); Chol/HDL Ratio 3.75 Ratio; Creatine Kinase 129 U/L (35-257); Globulin 1.8 g/dL (1.6-3.3); Glucose 93 mg/dL (70-110); LDL Cholesterol,Calculated 116.8 mg/dL (0.0-131.0); Magnesium 2.1 mg/dL (1.5-2.4); Non-African American GFR(CKD) 69.1 (60.0-200.0); Potassium 4.4 mmol/L (3.5-5.5); Sodium 143 mmol/L (135-145); Total Protein 6.3 g/dL (6.2-8.2); VLDL Calculation 18.14 mg/dL (5.00-40.00)
== END | disposition home or self-care (01) ==
LOC: LABWHC1 08:10
PROVIDERS: ATTEND Family Medicine
DX: E55.9 Vitamin D deficiency, unspecified (principal); E78.5 Hyperlipidemia, unspecified; E53.8 Deficiency of other specified B group vitamins; G25.3 Myoclonus
CPT/HCPCS: 36415; 80053; 80061; 82306; 82550; 82607; 83735; 84443; 85025

== ENCOUNTER → 2022-11-11 | Outpatient (CLI) | payer BC, MEDICARE ==
[2022-11-11 13:25] LABS: Basophils # (A) 0.07 X 10*3/uL (0.00-0.10); Basophils % (A) 1.1 %; HCT 46.8 % (39.6-50.0); HGB 15.2 g/dL (13.0-17.0); Immature Grans, Automated 0.3 %; Lymphocytes # (A) 2.05 X 10*3/uL (0.90-5.00); MCH 30.5 pg (27.0-32.0); MCHC 32.5 g/dL (32.0-37.0); MCV 93.8 fL (80.0-97.0); Mean Platelet Volume 9.9 fL (9.5-12.2); Monocytes # (A) 0.69 X 10*3/uL (0.20-1.00); Monocytes % (A) 10.4 %; NRBC Per 100 WBC 0 /100 WBCS (0.0-0.0); Neutrophils # (A) 3.58 X 10*3/uL (1.80-7.70); Neutrophils % (A) 54.2 %; Platelet Count 277 X 10*3/uL (140-440); RBC 4.99 X 10*6/uL (4.40-5.60); RDW 13.3 % (11.5-14.5); WBC 6.61 X 10*3/uL (4.50-10.00)
[2022-11-11 14:20] LABS: ALT 30 U/L (10-49); AST 19 U/L (14-35); African American GFR (CKD) 89.2 (60.0-200.0); Albumin 4.3 g/dL (3.8-4.9); Albumin/Globulin Ratio 2.39 (1.60-3.17); Alkaline Phosphatase 107 U/L (41-126); Blood Urea Nitrogen 17.6 mg/dL (9.0-27.0); Calcium 9.2 mg/dL (8.7-10.3); Carbon Dioxide 25.8 mmol/L (20.0-27.5); Chloride 105 mmol/L (96-109); Chol/HDL Ratio 3.58 Ratio; Globulin 1.8 g/dL (1.6-3.3); Glucose 86 mg/dL (70-110); LDL Cholesterol,Calculated 106.3 mg/dL (0.0-131.0); Potassium 4.5 mmol/L (3.5-5.5); Sodium 141 mmol/L (135-145); Total Protein 6.1 g/dL (6.2-8.2)
== END | disposition home or self-care (01) ==
LOC: LABWHC1 07:36
PROVIDERS: ATTEND Family Medicine
DX: Z00.00 Encounter for general adult medical examination without abnormal findings (principal); E78.5 Hyperlipidemia, unspecified; E53.8 Deficiency of other specified B group vitamins; N40.0 Benign prostatic hyperplasia without lower urinary tract symptoms; G25.3 Myoclonus; R73.03 Prediabetes
CPT/HCPCS: 36415; 80053; 80061; 82607; 83036; 84153; 84443; 85025

== ENCOUNTER → 2023-06-17 | Outpatient (CLI) | payer BC, MEDICARE ==
[2023-06-17 12:48] LABS: HCT 45.7 % (39.6-50.0); HGB 14.9 d/dL (13.0-17.0); MCH 30.2 pg (27.0-32.0); MCHC 32.6 d/dL (32.0-37.0); MCV 92.5 FL (80.0-97.0); Mean Platelet Volume 9.3 FL (9.5-12.2); NRBC Per 100 WBC 0 X 10*3/uL (0.00-0.01); Platelet Count 290 X 10*3/uL (140-440); RBC 4.94 X 10*6/uL (4.40-5.60); RDW 13.4 % (11.5-14.5); WBC 6.77 X 10*3/uL (4.50-10.00)
[2023-06-17 13:06] LABS: ALT 43 U/L (10-49); AST 24 U/L (14-35); Albumin 4.5 d/dL (3.8-4.9); Alkaline Phosphatase 97 U/L (41-126); BUN/Creat Ratio 21.89 Ratio (12.00-20.00); Blood Urea Nitrogen 19.7 mg/dL (9.0-27.0); Calcium 9.4 mg/dL (8.7-10.3); Carbon Dioxide 25.9 mmol/L (21.6-31.8); Chloride 105 mmol/L (96-109); Chol/HDL Ratio 3.68 Ratio; Creatine Kinase 108 U/L (35-257); Globulin 1.8 d/dL (1.6-3.3); Glucose 95 mg/dL (70-110); Potassium 4.6 mmol/L (3.5-5.5); Sodium 141 mmol/L (135-145); T4, Free (Free Thyroxine) 1.17 ng/dL (0.80-1.80); Total Bilirubin 0.7 mg/dL (0.3-1.2); Total Protein 6.3 d/dL (6.2-8.2); Uric Acid 5.1 mg/dL (3.7-8.7)
== END | disposition home or self-care (01) ==
LOC: LABWHC1 08:08
PROVIDERS: ATTEND Family Medicine
DX: G25.3 Myoclonus (principal); E78.5 Hyperlipidemia, unspecified; R73.03 Prediabetes
CPT/HCPCS: 36415; 80053; 80061; 82550; 84439; 84443; 84550; 85027

== ENCOUNTER → 2023-10-23 | Outpatient (CLI) | payer BC, MEDICARE ==
--- NOTE | 2023-10-23 20:38 | XR ---
EXAMINATION TYPE: XR chest 2V DATE OF EXAM: 10/23/2023 5:20 PM CLINICAL INDICATION:Male, 67 years old with history of Z01.818; [facility] COMPARISON: Chest radiographs from 11/29/2019 TECHNIQUE: XR chest 2V Frontal and lateral views of the chest. FINDINGS: Lungs/Pleura: There is no evidence of pleural effusion, focal consolidation, or pneumothorax. Pulmonary vascularity: Unremarkable. Heart/mediastinum: Cardiomediastinal silhouette is unremarkable. Musculoskeletal: No acute osseous pathology. IMPRESSION: Low lung volumes with a generalized hazy appearance which could represent atelectasis versus pulmonar y edema correlate with serum BNP.
== END | disposition home or self-care (01) ==
LOC: RADXRMAIN 17:13
PROVIDERS: ATTEND Family Medicine
DX: Z01.818 Encounter for other preprocedural examination (principal); R91.8 Other nonspecific abnormal finding of lung field
CPT/HCPCS: 71046

== ENCOUNTER → 2023-10-28 | Outpatient (CLI) | payer BC, MEDICARE ==
[2023-10-28 09:32] LABS: Partial Thromboplastin Time 24.9 sec (22.0-30.0); Prothrombin Time 10.7 sec (10.0-12.5)
[2023-10-28 13:18] LABS: ALT 39 U/L (10-49); AST 24 U/L (14-35); Albumin 4.5 g/dL (3.8-4.9); Albumin/Globulin Ratio 2.37 Ratio (1.60-3.17); Alkaline Phosphatase 93 U/L (41-126); Blood Urea Nitrogen 20.7 mg/dL (9.0-27.0); Calcium 9.3 mg/dL (8.7-10.3); Carbon Dioxide 22.9 mmol/L (21.6-31.8); Chloride 106 mmol/L (96-109); Globulin 1.9 g/dL (1.6-3.3); Glucose 89 mg/dL (70-110); HCT 44.9 % (39.6-50.0); HGB 14.7 g/dL (13.0-17.0); MCH 30.7 pg (27.0-32.0); MCHC 32.7 g/dL (32.0-37.0); MCV 93.7 FL (80.0-97.0); Mean Platelet Volume 9.2 FL (9.5-12.2); NRBC Per 100 WBC 0 X 10*3/uL (0.00-0.01); Platelet Count 289 X 10*3/uL (140-440); Potassium 4.6 mmol/L (3.5-5.5); RBC 4.79 X 10*6/uL (4.40-5.60); RDW 13.1 % (11.5-14.5); Sodium 141 mmol/L (135-145); Total Bilirubin 0.6 mg/dL (0.3-1.2); Total Protein 6.4 g/dL (6.2-8.2); WBC 6.39 X 10*3/uL (4.50-10.00)
[2023-10-28 22:46] LABS: Appearance,Urine Clear (Clear); Bilirubin,Urine Negative (Negative); Blood,Urine Negative (Negative); Color,Urine Yellow (Yellow); Ketones,Urine Negative (Negative); Nitrite,Urine Negative (Negative); Urobilinogen,Urine 0.2 E.U./DL
== END | disposition home or self-care (01) ==
LOC: LABPAT 08:05
PROVIDERS: ATTEND Orthopaedic Surgery
DX: Z01.812 Encounter for preprocedural laboratory examination (principal); M16.11 Unilateral primary osteoarthritis, right hip
CPT/HCPCS: 80053; 81003; 85027; 85610; 85730; 86850; 86900; 86901; 87070

== ENCOUNTER 2023-11-07 05:35 | Day surgery (SDC) | payer BC, MEDICARE ==
[2023-11-02 10:03] VITALS: BMI 30.5
[~2023-11-07 05:35] MED LIST changes: -ACETAMINOPHEN TAB 500 MG TAB PO ONE; -GABAPENTIN 300 MG CAP PO ONE; -MELOXICAM 7.5 MG TAB PO ONE; +MELOXICAM 7.5 MG TAB PO PRN; -ROPIVACAINE 246.25 MG, EPINEPHrine 0.5 MG, KETOROLAC 30 MG, cloNIDine HCL/PF 80 MCG, WA... MISCELLANE ONE; +TRANEXAMIC 1,000 MG/100ML-NACL 1,000 MG in SALINE 1 100ML.BAG IVPB PRN; -TRANEXAMIC ACID 1,000 MG in SODIUM CHLORIDE 0.9% 100 ML IVPB ONE
[2023-11-07] MEDS ORDERED: ONDANSETRON 4 MG/2 ML VIAL IVP ONE (05:48)
[2023-11-07] MEDS ORDERED: LIDOCAINE 1% (10MG/ML) FOR IV START INTRADERMA PRN (05:48)
[2023-11-07] MEDS ORDERED: DEXAMETHASONE SOD PHOSPHATE 4 MG/ML 1 ML VIAL IV ONE (05:48)
[2023-11-07] MEDS: LACTATED RINGERS 1,000 ML IV SCH (06:00)
[2023-11-07] MEDS ORDERED: MIDAZOLAM 2 MG/2 ML VIAL IVP ONE (06:33)
[2023-11-07] MEDS ORDERED: fentaNYL (PF) 50 MCG/ML 2 ML AMP IVP ONE (06:35)
[2023-11-07] MEDS ORDERED: fentaNYL (PF) 50 MCG/ML 2 ML AMP ONE (06:45)
[2023-11-07] MEDS ORDERED: PHENYLEPHRINE-0.9% NACL SYG 1,000 MCG/10 ML SYRINGE ONE (06:45)
[2023-11-07] MEDS ORDERED: PROPOFOL 10 MG/ML 20 ML VIAL IV ONE (06:45)
[2023-11-07] MEDS ORDERED: ePHEDrine 50 MG/ML 1 ML VIAL ONE (06:45)
[2023-11-07] MEDS ORDERED: ROPIVACAINE 5 MG/ML 30 ML VIAL ONE (06:45)
[2023-11-07] MEDS ORDERED: MIDAZOLAM 2 MG/2 ML VIAL ONE (06:45)
[2023-11-07] MEDS ORDERED: TRANEXAMIC 1,000 MG/100ML-NACL PREMIX BAG ONE (06:45)
[2023-11-07] MEDS ORDERED: DEXAMETHASONE SOD PHOSPHATE 4 MG/ML 1 ML VIAL ONE (06:45)
[2023-11-07] MEDS ORDERED: ceFAZolin 1,000 MG in SODIUM CHLORIDE 0.9% 1,000 ML IRRIGATION ONE (06:50)
[2023-11-07] MEDS ORDERED: MIDAZOLAM 2 MG/2 ML VIAL IV PRN (07:00)
[2023-11-07] MEDS ORDERED: HYDROmorphone 0.5 MG/0.5 ML SYRINGE IVP PRN ×3 (07:00→08:36)
[2023-11-07] MEDS ORDERED: ROPIVACAINE 5 MG/ML 30 ML VIAL MISCELLANE ONE ×2 (07:25→08:03)
--- NOTE | 2023-11-07 08:11 | P.OP ---
Date of Procedure: 11/07/23 Preoperative Diagnosis: Severe osteoarthritis right hip Postoperative Diagnosis: Severe osteoarthritis right hip Procedure(s) Performed: Right total hip arthroplasty with a direct anterior approach Implants: [employer] Polarstem standard size 7 with a collar [employer] R3, 3 hole hemispherical acetabular shell, 58 mm [employer] Reflection 6.5 mm cancellus screw, 25 mm, 30 mm [employer] R3, XLPE 20 acetabular liner [employer]hew Oxinium femoral head 36 mm, +4 All components were press-fit. The articulation is Oxinium on polyethylene. Anesthesia: spinal Surgeon: Jameson Stevenson Warehouse Record Clerk #1: Debi Roberts Estimated Blood Loss (ml): 400 Pathology: none sent Condition: stable Disposition: PACU Indications for Procedure: After failure of conservative treatment we discussed the surgical and n onsurgical treatment options at length. Patient wishes to proceed with a total hip arthroplasty with a direct anterior approach. Complications specific to this procedure were discussed at length, including but not limited to infection, leg length discrepancy, dislocation, nerve injury, and fracture. Covid-19 was also discussed at length with the patient, and they are aware of the current policies and procedures. The patient was given the option of delaying surgery, but they elect to proceed knowing these risks. Patient is aware of all these complications and informed consent was obtained Operative Findings: The operative findings are consistent with severe osteoarthritis of the right hip Description of Procedure: The patient was seen and evaluated in the preoperative area and the consent was reviewed. The operative site was marked with a skin marker. The patient verified the procedure and operative site. A SIXTO block was placed by anesthesia in the preoperative area. The patient was then brought to the operating room and given preoperative antibiotics intravenously. 1 g of Tranexamic acid was also given intravenously. A spinal anesthetic was administered by the anesthesia department. The patient was then placed on the Ware table with the bony prominences well-padded. The hip area was then prepped with a ChloraPrep solution and draped in the usual sterile fashion. A universal timeout was then performed, which confirmed the patient's name, surgical site, ALLERGIES, and procedure being performed on the consent. Next the incision site was located at 1 cm distal and 4 cm lateral to the anterior superior iliac spine. The skin and subcutaneous tissues were sharply incised. Incision was carefully dissected down to the fascia overlying the tensor fascia kali muscle. This fascia was then incised in line with the muscle fibers. Care was taken to stay laterally in order to avoid injuring the lateral femoral cutaneous nerve. Next, using blunt finger dissection, the tensor fascia kali muscle was dissected off its investing fascia. The muscle was then carefully retracted laterally with a cobra retractor over the lateral neck of the femur. Next, the circumflex vessels were identified and cauterized using the Aquamantis device. The anterior hip capsule was then exposed. The capsule was then opened and an inverted T fashion. The retractors were then placed intracapsularly. The retractors were maintained intracapsular throughout the procedure. The proximal femur was then visualized. Fluoroscopic x-rays were then taken in order to evaluate the preoperative leg lengths. A small amount of traction was placed on the leg. The femoral neck was then osteotomized at the appropriate level above the lesser trochanter. A small wedge of bone was then removed from the remaining femoral head. Next, using a corkscrew the femoral head was removed from the acetabulum. On gross visual inspection, the femoral head had complete loss of articular cartilage and multiple periarticular osteophytes. The femoral head was then measured. Attention was then turned to the acetabulum. The acetabulum was exposed and any remaining labrum was excised. Sequential reaming of the acetabulum was performed using fluoroscopic guidance until there was a good bed of bleeding cancellus bone. When the appropriate size was reached, a trial was then placed. The position and fit of the trial was checked with fluoroscopy. The trial was then removed. Then, using fluoroscopic guidance, the final implant was impacted at 20 of anteversion and 40 of abduction, and fully seated in the acetabulum. 2 screws were then placed in the acetabulum. Again fluoroscopy was used to check position of the screws. Next, the liner was then impacted, with a 20 elevated liner located in the anterior superior quadrant. Component locking was confirmed. Attention was then directed to the femur. With the aid of the Ware table, the femur was externally rotated to approximately 130, extended, and adducted under the opposite leg. A side hook was then placed under the proximal femur, and the side hook elevator was used to elevate the proximal femur while releasing the capsule. Retractors were then placed. A capsular release was performed, as well as a release of the conjoined tendon, which afforded excellent visualization of the proximal femur. Next, a box osteotome was used to lateralize the proximal femur. A campground hand was then used to locate the femoral canal. Sequential broaching was then performed with appropriate size which afforded excellent fixation in the proximal femur. A trial was then placed with appropriate head and neck, and the hip was gently reduced with the aid of the Ware table. Fluoroscopy was then used to check position of the components, as well as to evaluate the leg lengths and offset. The leg lengths and offset were measured as closely as possible to ensure stability of the hip. The hip was then gently dislocated and the trials were then removed. Final implants were then impacted and the hip was again reduced. Final fluoroscopic x-rays confirmed that the components were in anatomic position. The leg lengths and offset were measured and were found to coincide with the trial measurements. The hip was also taken through range of motion, and found to be stable. The hip was then copiously irrigated with antibiotic solution with pulsatile lavage. The hip was then irrigated with Irrisept solution. The soft tissues were then injected with a ropivacaine solution. A second dose of 1 g of Tranexamic acid was also given intravenously. The fascia was then closed with 2-0 strata fix suture. The subcutaneous tissue was closed with 3-0 Vicryl. The subcuticular tissue was closed with 3-0 strata fix suture. The skin was then closed with Exofin skin glue. After the glue and dried, and Optifoam silver impregnated dressing was applied. The patient was then transferred to the recovery room in stable condition. The neurology physician assistant ANGELA Mcnulty was required due to the complexity of surgery, and the need for skilled surgical supervisor for positioning, draping, exposure, retraction, and closure of the wound.
[2023-11-07] MEDS ORDERED: LACTATED RINGERS 1,000 ML IV ONE (08:30)
[2023-11-07] MEDS ORDERED: ONDANSETRON 4 MG/2 ML VIAL IVP PRN (08:36)
[2023-11-07] MEDS ORDERED: MAGNESIUM HYDROXIDE 2,400 MG/30 ML CUP PO PRN (08:36)
[2023-11-07] MEDS ORDERED: NALOXONE 0.4 MG/ML 1 ML VIAL IV PRN (08:36)
[2023-11-07] MEDS ORDERED: HYDROcodone/APAP 7.5-325MG 1 EACH TAB PO PRN (08:39)
--- NOTE | 2023-11-07 09:12 | XR ---
EXAMINATION TYPE: XR Hip Limited RT DATE OF EXAM: 11/07/2023 9:00 AM CLINICAL INDICATION:Male, 68 years old with history of Status post hip surgery, assess surgical align ment; H COMPARISON: Fluoroscopy in OR today at 8:03 AM TECHNIQUE AND FINDINGS: Single frontal view of the right hip. A total hip arthroplasty is in place, appears intact and normal ly aligned. No abnormal perihardware lucency or fracture. No significant malalignment. Soft tissues s how no unexpected radiopaque foreign body. Some regional soft tissue gas is present, not unexpected p ostoperative. IMPRESSION: Status post placement of total hip arthroplasty. No evidence of complication.
--- NOTE | 2023-11-07 12:43 | FL ---
EXAMINATION TYPE: FL guidance operating room, XR Hip Complete RT DATE OF EXAM: 11/07/2023 Comparison: None Clinical History: 68-year-old male RT ANTERIOR HIP Findings: TOTAL ANT RIGHT HIP, 4 IMAGES PROVIDED. FL TIME 59.2 SECS. DAP 3.9966 mGcym2. Impression: Intraoperative fluoroscopy as above.
[2023-11-07 14:03] VITALS: RESP 18
[2023-11-07] MEDS: SODIUM CHLORIDE 0.9% 1,000 ML IV SCH ×2 (14:35→15:14)
[2023-11-07] MEDS: HYDROmorphone 0.5 MG/0.5 ML SYRINGE IVP PRN ×2 (15:12→20:08)
[2023-11-07] MEDS: HYDROcodone/APAP 7.5-325MG 1 EACH TAB PO PRN (17:53)
[2023-11-07] MEDS: ASPIRIN 325 MG TAB PO SCH (20:07)
[2023-11-07] MEDS ORDERED: SENNOSIDES-DOCUSATE SODIUM 1 EACH TAB PO SCH (21:00)
[2023-11-08] MEDS: HYDROcodone/APAP 7.5-325MG 1 EACH TAB PO PRN ×2 (00:13→05:31)
[2023-11-08] MEDS: LACTATED RINGERS 1,000 ML IV SCH ×2 (05:31→06:26)
[2023-11-08] MEDS: SODIUM CHLORIDE 0.9% 1,000 ML IV SCH (05:35)
[2023-11-08 07:33] VITALS: BP 123/69; PULSE 71; TEMP 97.8
[2023-11-08 08:33] LABS: HCT 36.5 % (39.6-50.0); HGB 12.1 g/dL (13.0-17.0); MCH 30.6 pg (27.0-32.0); MCHC 33.2 g/dL (32.0-37.0); MCV 92.4 FL (80.0-97.0); Mean Platelet Volume 9.6 FL (9.5-12.2); NRBC Per 100 WBC 0 X 10*3/uL (0.00-0.01); Platelet Count 248 X 10*3/uL (140-440); RBC 3.95 X 10*6/uL (4.40-5.60); RDW 13.2 % (11.5-14.5); WBC 13.03 X 10*3/uL (4.50-10.00)
[2023-11-08] MEDS: ASPIRIN 325 MG TAB PO SCH (08:34)
[2023-11-08] MEDS ORDERED: MELOXICAM 7.5 MG TAB PO SCH (09:00)
[2023-11-08 09:16] LABS: Basophils # (A) 0.03 X 10*3/uL (0.00-0.10); Basophils % (A) 0.2 %; Eosinophils # (A) 0.03 X 10*3/uL (0.04-0.35); Eosinophils % (A) 0.2 %; Lymphocytes # (A) 1.59 X 10*3/uL (0.90-5.00); Lymphocytes % (A) 12.2 %; Monocytes # (A) 1.57 X 10*3/uL (0.20-1.00); Neutrophils # (A) 9.71 X 10*3/uL (1.80-7.70); Neutrophils % (A) 74.6 %; RBC Morphology Normal (Normal)
--- NOTE | 2023-11-08 11:24 | P.DS ---
Providers Expected date of discharge: 11/08/23 Attending physician: Jameson Stevenson Consults: 11/07/23 08:36 Consult Physician Routine Consulting Provider: Dina Grace Consult Reason/Comments: medical management Do you want consulting provider notified?: Yes Primary care physician: Chanda Riverao - Discharge Diagnosis(es) (1) Primary osteoarthritis of right hip Current Visit: Yes Status: Acute (2) Status post total hip replacement, right Current Visit: Yes Status: Acute Hospital Course: This is a 68-year-old Male with history of degenerative arthritis of the Right hip. The patient has failed outpatient conservative treatment and presents to [facility] surgical options. After discussion and consideration the patient elects to proceed with total Right hip arthroplasty with direct anterior approach. The patient is evaluated preoperatively by the primary care physician and cleared for surgery. The patient is admitted to [facility] on 11/07/2023 for total Right hip arthroplasty was direct anterior approach. The procedure is performed without complication or sequelae. The patient is doing well postoperatively. The patient may be discharged to home today in good condition. Please see med rec for accurate list of home medications. Patient Condition at Discharge: Good Plan - Discharge Summary Discharge Rx Participant: Yes New Discharge Prescriptions: New Aspirin 325 mg PO BID #60 tab Continue HYDROcodone/APAP 7.5-325MG [[place] 7.5-325] 1 - 2 tab PO Q4-6H PRN #50 tab PRN Reason: Pain Cyanocobalamin [Vitamin B-12] 500 mcg PO DAILY levETIRAcetam [Keppra] 750 mg PO Q12HR Discontinued Aspirin [Adult Low Dose Aspirin EC] 81 mg PO DAILY Discharge Medication List HYDROcodone/APAP 7.5-325MG [[place] 7.5-325] 1 - 2 tab PO Q4-6H PRN #50 tab 12/24/19 [Rx] Cyanocobalamin [Vitamin B-12] 500 mcg PO DAILY 11/02/23 [History] levETIRAcetam [Keppra] 750 mg PO Q12HR 11/02/23 [History] Aspirin 325 mg PO BID #60 tab 11/07/23 [Rx] Follow up Appointment(s)/Referral(s): [facility] [[facility] - 1 Week ([facility] will call you toarrange a visit) Jameson Stevenson DO [Doctor of Osteopathic Medicine] - 2 Weeks Activity/Diet/Wound Care/Special Instructions: Weightbearing as tolerated with walker. Leave dressing intact. Dressing may be removed by home care nurse or by patient in 7 days. Then change dressing twice daily until follow up. May shower with initial dressing intact and after removal. If dressing become saturated, please remove. Please take aspirin 325mg twice daily for 30 days to prevent blood clots. Pain medicine per Dr. Davey. Recommend use of compression stockings daily until follow up to help prevent swelling and blood clots. May remove at night before sleeping. Please follow-up with [facility] in 2 weeks and call with any q uestions or concerns, . Discharge Disposition: HOME WITH HOME HEALTH SERVICES
--- NOTE | 2023-11-08 15:27 | P.CONS ---
History of Present Illness - Reason for Consult Consult date: 11/08/23 Medical management, status post right total hip arthroplasty - History of Present Illness This is a pleasant 68-year-old male who was recently admitted under orthopedic services status post right total hip arthroplasty, postop day 1. Patient reports he follows with Dr. Davey in the outpatient setting with a past medical history of hyperlipidemia, colitis, restless leg syndrome. Patient reports to occasionally drinking alcohol has never been a smoker and denies any other illicit drug use. Patient reports he did follow-up with his primary care provider to undergo presurgical clearance. Patient is postop day 1 and doing relatively well and did well with physical therapy reporting his pain is currently managed and reports he will be going home today. Patient does have incentive spirometer at the bedside and encourage the patient continue using at least 10 times every hour while awake and take home and continue to use. Patient does take Keppra and asked during exam if has any seizure history and reports is prescribed this by his primary care provider for restless leg syndrome. Home medications have been reviewed and resumed as appropriate. Patient denies any chest pain, shortness of breath, or palpitations. Patient is voiding and reports to passing gas but no bowel movement as of yet Review Of Systems: Constitutional: No fever, no chills, no night sweats. No weight change. No weakness, fatigue or lethargy. No daytime sleepiness. EENT: No headache. No blurred vision or double vision, no loss of vision. No loss of Hearing, no ringing in the ears, no dizziness. No nasal drainage or congestion. No epistaxis. No sore throat. Lungs: No shortness of breath, cough, no sputum production. No wheezing. Cardiovascular: No chest pain, no lower extremity edema. No palpitations. No paroxysmal nocturnal dyspnea. No orthopnea. No lightheadedness or dizziness. No syncopal episodes. Abdominal: No abdominal pain. No nausea, vomiting. No diarrhea. No constipation. No bloody or tarry stools.. No loss of appetite. Genitourinary: No dysuria, increased frequency, urgency. No urinary retention. Musculoskeletal: No myalgias. No muscle weakness, no gait dysfunction, no frequent falls. No back pain. No neck pain. Reports some mild right hip discomfort although currently manageable Integumentary: No wounds, no lesions. No rash or pruritus. No unusual bruising. No change in hair or nails. Neurologic: No aphasia. No facial droop. No change in mentation. No head injury. No headache. No paralysis. No paresthesia. Psychiatric: No depression. No anxiety. No mood swings. Endocrine: No abnormal blood sugars. No weight change. No excessive sweating or thirst. No cold intolerance. PHYSICAL EXAMINATION: GENERAL: The patient is alert and oriented x4, Well developed, well nourished. Obese HEENT: Pupils are round and equally reacting to light. EOMI. no scleral icterus. No conjunctival pallor. Normocephalic, atraumatic. No pharyngeal erythema. No thyromegaly. CARDIOVASCULAR: S1 and S2 muffled PULMONARY: diminished breath sounds bilaterally with no wheezing or rhonchi noted. ABDOMEN: soft. Nontender on exam. obese. non-distended, normoactive bowel sounds. No palpable organomegaly. MUSCULOSKELETAL: No joint swelling or deformity. Right hip surgical dressing is dry and intact with no significant redness and some minimal swelling noted although groin is soft and palpable. EXTREMITIES: No cyanosis, clubbing, or pedal edema. NEUROLOGICAL: Gross neurological examination did not reveal any focal deficits. Diffuse weakness SKIN: No rashes. Assessment: Status post right total hip arthroplasty, postop day 1 History of restless leg syndrome mild leukocytosis, likely reactive this patient is afebrile and does not appear infectious History of hyperlipidemia Obesity with a BMI of 30.7 GI prophylaxis DVT prophylaxis Full code Plan: Recommend to continue with current medications and management per orthopedic services. Patient was able to work with physical therapy and did relatively well and has support at home and will be going home Home medications reviewed and resumed as appropriate Patient with incentive spirometer at the bedside encourage the patient continue using at least 10 times every hour while awake Continue his pain management and DVT prophylaxis per orthopedics Encouraged increased activity as tolerated as well as taking it easy over the next few days and continuing with pain management Patient is medically stable for discharge once cleared by orthopedics Thank you kindly for this consultation. We will continue to follow with orthopedics during hospitalization. The impression and plan of care has been dictated by Shabnam Manning, nurse practitioner as directed. Dr. Rhiannon MD I have performed a history and examination and MDM of this patient, discussed the same with the dictator, and agree with the dictator's assessment and plan as written ,documented as a scribe. Based on total visit time, I have performed more than 50% of the visit. Any additional findings or plans will be noted. Past Medical History Past Medical History: Hyperlipidemia Additional Past Medical History / Comment(s): colitis, restless leg syndrome History of Any Multi-Drug Resistant Organisms: None Reported Past Surgical History: Joint Replacement, Orthopedic Surgery Additional Past Surgical History / Comment(s): sx for sleep apnea, ARTHROSCOPY right KNEE, COLONOSCOPY, left total knee arthroplasty 12/23/2019 Past Anesthesia/Blood Transfusion Reactions: No Reported Reaction Smoking Status: Never smoker - Past Family History Mother Family Medical History: No Reported History Father Family Medical History: Unable to Obtain Brother(s) Family Medical History: No Reported History Sister(s) Family Medical History: No Reported History Daughter(s) Family Medical History: No Reported History Son(s) Family Medical History: No Reported History Medications and Allergies Home Medications Medication Instructions Recorded Confirmed Type HYDROcodone/APAP 7.5-325MG [[place] 1 - 2 tab PO Q4-6H PRN #50 tab 12/24/19 11/07/23 Rx 7.5-325] Cyanocobalamin [Vitamin B-12] 500 mcg PO DAILY 11/02/23 11/07/23 History levETIRAcetam [Keppra] 750 mg PO Q12HR 11/02/23 11/07/23 History Aspirin 325 mg PO BID #60 tab 11/07/23 Rx Allergies Allergy/AdvReac Type Severity Reaction Status Date / Time No Known Allergies Allergy Verified 11/07/23 05:57 Physical Exam Vitals: Vital Signs Temp Pulse Resp BP BP Pulse Ox 11/08/23 06:57 97.8 F 71 18 123/69 98 11/08/23 00:47 98 F 78 18 97/59 94 L 11/07/23 18:48 98.3 F 88 18 115/71 95 11/07/23 13:49 98.2 F 104 H 18 154/75 98 11/07/23 12:30 89 16 136/63 93 L 11/07/23 12:00 85 16 130/63 93 L 11/07/23 11:30 82 16 121/62 92 L 11/07/23 11:01 84 16 124/63 98 11/07/23 10:45 72 16 118/59 98 Intake and Output 11/07/23 11/08/23 11/08/23 22:59 06:59 14:59 Output Total 1000 Balance -1000 Output: Urine 1000 Other: Voiding Method Urinal # Voids 1 Weight 102.6 kg Results CBC & Chem 7: 11/08/23 04:48 Labs: Abnormal Lab Results - Last 24 Hours (Table) 11/08/23 Range/Units 04:48 WBC 13.03 H (4.50-10.00) X 10*3/uL RBC 3.95 L (4.40-5.60) X 10*6/uL Hgb 12.1 L (13.0-17.0) g/dL Hct 36.5 L (39.6-50.0) % Immature Gran # 0.10 H (0.00-0.04) X 10*3/uL Neutrophils # 9.71 H (1.80-7.70) X 10*3/uL Monocytes # 1.57 H (0.20-1.00) X 10*3/uL Eosinophils # 0.03 L (0.04-0.35) X 10*3/uL
== END 2023-11-08 13:29 | disposition home health service (06) ==
LOC: OR 05:35 → 4SSUR 08:31 → OR 11-08 13:29
PROVIDERS: ATTEND Orthopaedic Surgery
DX: M16.11 Unilateral primary osteoarthritis, right hip (principal); E78.5 Hyperlipidemia, unspecified; H91.90 Unspecified hearing loss, unspecified ear; K52.9 Noninfective gastroenteritis and colitis, unspecified; F10.90 Alcohol use, unspecified, uncomplicated; Z79.82 Long term (current) use of aspirin; Z79.899 Other long term (current) drug therapy; Z83.3 Family history of diabetes mellitus; Z96.653 Presence of artificial knee joint, bilateral
CPT/HCPCS: 27130; 97161; 97166; 64447; 85025; 73501; 73502; C1776; J2250; J1100; J0690 ×2; J2405; J3010; J2795; J1170

== ENCOUNTER → 2025-04-26 | Outpatient (CLI) | payer BC, MEDICARE ==
[2025-04-26 12:46] LABS: Basophils # (A) 0.08 X 10*3/uL (0.00-0.10); Basophils % (A) 1.2 %; Eosinophils % (A) 4.6 %; HCT 46.4 % (39.6-50.0); HGB 14.8 g/dL (13.0-17.0); Lymphocytes # (A) 2.13 X 10*3/uL (0.90-5.00); Lymphocytes % (A) 32.3 %; MCHC 31.9 g/dL (32.0-37.0); MCV 94.1 FL (80.0-97.0); Mean Platelet Volume 9.6 FL (9.5-12.2); Monocytes # (A) 0.69 X 10*3/uL (0.20-1.00); Monocytes % (A) 10.5 %; NRBC Per 100 WBC 0 X 10*3/uL (0.00-0.01); Neutrophils # (A) 3.37 X 10*3/uL (1.80-7.70); Neutrophils % (A) 51.1 %; Platelet Count 297 X 10*3/uL (140-440); RBC 4.93 X 10*6/uL (4.40-5.60); RDW 13.3 % (11.5-14.5); WBC 6.59 X 10*3/uL (4.50-10.00)
[2025-04-26 13:04] LABS: ALT 28 U/L (10-49); AST 19 U/L (14-35); Albumin 4.3 g/dL (3.8-4.9); Albumin/Globulin Ratio 2.26 Ratio (1.60-3.17); Alkaline Phosphatase 96 U/L (41-126); BUN/Creat Ratio 20.33 Ratio (12.00-20.00); Blood Urea Nitrogen 18.3 mg/dL (9.0-27.0); Calcium 9.7 mg/dL (8.7-10.3); Carbon Dioxide 23.5 mmol/L (21.6-31.8); Chloride 104 mmol/L (96-109); Chol/HDL Ratio 3.55 Ratio; Creatine Kinase 101 U/L (35-257); Globulin 1.9 g/dL (1.6-3.3); Glucose 93 mg/dL (70-110); LDL Cholesterol,Calculated 87.8 mg/dL (0.0-131.0); Potassium 4.7 mmol/L (3.5-5.5); Sodium 138 mmol/L (135-145); Total Bilirubin 0.7 mg/dL (0.3-1.2); Total Protein 6.2 g/dL (6.2-8.2)
== END | disposition home or self-care (01) ==
LOC: LABWHC1 07:37
PROVIDERS: ATTEND Family Medicine
DX: E78.5 Hyperlipidemia, unspecified (principal); G25.81 Restless legs syndrome; R73.03 Prediabetes
CPT/HCPCS: 36415; 80053; 80061; 82550; 83036; 84443; 85025